=== PATIENT | female | born 1950 | race Caucasian/White ===

== ENCOUNTER 2023-04-26 12:10 | Inpatient (IN) | payer MEDICARE, SELFPAY ==
[2023-04-26] VITALS (8 sets, daily range): BP systolic 83–124; BP diastolic 45–72; PULSE 95–117; RESP 18–23; TEMP 36.9–37.1; O2SAT 91–98
--- NOTE | ~2023-04-26 | XR_ITS ---
EXAMINATION: XR FEMUR, RIGHT CLINICAL INFORMATION: Postop. Fracture. COMPARISON: Previous x-ray 04/26/2023 and intraoperative fluoroscopy images 04/28/2023 TECHNIQUE: AP and lateral views of the right femur were obtained. FINDINGS: There is a new laterally placed plate and multiple screws transfixing the comminuted periprosthetic fracture of the right distal femoral shaft. There is improved near-anatomic alignment. There is a right knee replacement that appears unremarkable. There are postoperative changes to the soft tissues. Atherosclerotic disease. XR/XR femur RT 2V IMPRESSION: ORIF of right distal femoral shaft periprosthetic fracture.
--- NOTE | ~2023-04-26 | XR_ITS ---
EXAMINATION: XR CHEST CLINICAL INFORMATION: Hip fracture. COMPARISON: None available. TECHNIQUE: AP view of the chest was obtained. FINDINGS: Nonspecific widening of the superior cardiomediastinal measuring up to 12.5 cm in diameter. A few focal airspace opacities are noted projecting over the right mid to lower lung. Clear left lung. No pleural effusion or pneumothorax. No evidence of displaced rib fractures. No acute osseous abnormalities. Nonspecific linear-like metallic body projecting over the left lung apex/soft tissues of the left lower neck. XR/XR chest 1V IMPRESSION: 1. Nonspecific widening of the superior cardiomediastinal silhouette most likely accentuated by patient's positioning. However, in the setting of trauma further evaluation with CT chest could be obtained as clinically deemed appropriate for evaluation of underlying injury. 2. Focal airspace opacities in the right lung. Recommend clinical correlation for an infectious/inflammatory process. 3. No pleural effusion or pneumothorax. 4. No evidence of displaced rib fractures. 5. Nonspecific metallic body projecting over the left upper lobe, possibly external to the patient. Recommend correlation with physical examination. This critical result, specifically the presence of widening of the superior cardiomediastinal silhouette, was discussed with Devin Benson at 04/26/2023 2:34 PM and it was ascertained that the content and urgency of the report was understood at the time of direct communication.
--- NOTE | ~2023-04-26 | XR_ITS ---
X-RAY RIGHT FEMUR AND RIGHT KNEE CLINICAL HISTORY: Fracture. COMPARISON: No relevant prior studies are available for comparison. TECHNIQUE: 2 views of the right femur and 2 views of the right knee. FINDINGS: Total right knee arthroplasty. Displaced, angulated and impacted comminuted periprosthetic fracture involving the distal femur. Surrounding soft tissue swelling. Moderate joint effusions. Scattered vascular calcifications. No discrete additional fracture in the right hip, although the examination is somewhat limited due to patient's positioning and body habitus. XR/XR femur RT 2V IMPRESSION: Periprosthetic distal femoral fracture.
--- NOTE | ~2023-04-26 | FL_ITS ---
EXAMINATION: XR FLUOROSCOPY WITH IMAGES CLINICAL INFORMATION: Periprosthetic distal femoral shaft fracture COMPARISON: Previous x-ray 04/26/2023 TECHNIQUE: Fluoroscopy Supervised By: Dr. Dank Corado. Fluoroscopy Time: 1.2 minutes. Cumulative Dose: 9.6 mGy. DAP: 0.17 Gycm2. Images: 8. FINDINGS: Fluoroscopy guidance provided plate and screw fixation of the periprostatic fracture of the right distal femoral shaft. Images demonstrate improved alignment. Right knee replacement partially visualized. FL/FL guidance in OR IMPRESSION: Fluoroscopy guidance for ORIF of right distal femoral shaft periprosthetic fracture.
--- NOTE | ~2023-04-26 | XR_ITS ---
EXAMINATION: XR CHEST CLINICAL INFORMATION: Hypoxia COMPARISON: Previous chest x-ray 04/26/2023 TECHNIQUE: Frontal view of the chest was obtained. FINDINGS: The cardiac and mediastinal contours are stable. The lungs are clear. No pleural effusion or pneumothorax. No acute bone abnormality. Degenerative changes of the spine and shoulders. XR/XR chest 1V IMPRESSION: No evidence for acute disease in the chest.
--- NOTE | ~2023-04-26 | XR_ITS ---
X-RAY RIGHT FEMUR AND RIGHT KNEE CLINICAL HISTORY: Fracture. COMPARISON: No relevant prior studies are available for comparison. TECHNIQUE: 2 views of the right femur and 2 views of the right knee. FINDINGS: Total right knee arthroplasty. Displaced, angulated and impacted comminuted periprosthetic fracture involving the distal femur. Surrounding soft tissue swelling. Moderate joint effusions. Scattered vascular calcifications. No discrete additional fracture in the right hip, although the examination is somewhat limited due to patient's positioning and body habitus. XR/XR knee RT 2V IMPRESSION: Periprosthetic distal femoral fracture.
--- NOTE | 2023-04-26 13:11 | PC.NURSE ---
pt a+o x3, came to ed via ambulance for evaluation of a fall. she reports that her knees buckled and she fell. denies dizziness or lightheadedness prior to fall. witnessed fall x2 different times since this morning, no head strike, no loc. c/o 10/10 r knee pain. no other complaints reported. at bedside.
--- NOTE | 2023-04-26 13:25 | ED.GENADULT ---
HPI - General Adult General Chief complaint: Fall Stated complaint: VERTIGO/FAINTING SPELLS Time Seen by Provider: 04/26/23 13:14 Source: patient Mode of arrival: ambulatory Limitations: no limitations History of Present Illness HPI narrative: knee gave out today and the patient fell back injuring her right leg. Unable to move her leg. No passing out no dizziness. Right knee replacement Onset (ago): minute(s) Severity: severe Related Data Allergies Allergy/AdvReac Type Severity Reaction Status Date / Time sulfite AdvReac Rash Verified 04/26/23 12:45 Review of Systems Review of Systems: Yes all other systems are reviewed and are negative Neurologic: Denies Sensory deficit (Neuro) [facility] Social History Social History Advance Directives: No Physical Exam ED Vital Signs: Vital Signs - 24 hr 04/26/23 12:22 04/26/23 12:50 04/26/23 15:57 Temperature 98.4 F 98.7 F Pulse Rate 109 H 105 H 103 H Respiratory Rate 20 20 Blood Pressure 99/56 L 101/57 L 83/47 L Pulse Oximetry 91 L Oxygen Delivery Method Room Air Room Air 04/26/23 18:00 04/26/23 18:50 04/26/23 19:39 Temperature Pulse Rate 98 107 H Respiratory Rate 23 H Blood Pressure 91/52 L 90/45 L 112/60 Pulse Oximetry 92 91 L Oxygen Delivery Method Room Air Room Air BMI result Body Mass Index 30.0 Const General: healthy appearing Nutritional Appearance: average body habitus Orientation/consciousness: oriented to person and patient oriented x3 Limitations: no limitations HENMT Head: Yes normal to inspection Ears: external ears normal General nose exam: Normal external nose present Mouth: Normal oral and palatal mucosa present and oropharynx normal Throat: Yes posterior oropharynx normal Eyes General: appearance normal, both eyes and all related structures Neck Neck: Yes normal visual inspection Chest Chest palpation & inspection: normal inspection of the chest Resp Auscultation: clear to auscultation bilaterally Cardio Jugular venous distension: no JVD Rate: regular rate Rhythm: regular rhythm Heart sounds: S1 normal heart sound present and S2 normal heart sound present GI Inspection: Yes normal to inspection Palpation (GI): Soft to palpation, nontender and No hepatosplenomegaly present Auscultation: normal bowel sounds General: Yes no CVA tenderness Back/Spine/Pelvis Back: no CVA tenderness Skin General skin exam: no rashes or lesions noted Neuro General: oriented to person and patient oriented x3 Cranial nerves: Yes CN's II-XII intact bilaterally Motor exam (neuro): 5/5 motor strength present throughout Sensory Exam: No Sensory deficit (Neuro) Extrem Other: right distal femur with swelling and pain Psych Appearance: grossly normal Course Reevaluation(s) Reevaluation #1: still waiting on lactic acid and Urine, no source of infection, patient is looking well despite low BP Time: 19:15 Reevaluation #2: urine is infected, lactic acid low, no evidence of sepsis will treat with ceftriaxone Time: 20:18 Reevaluation #3: I spent 40 minutes of critical care, with interventions, assessments, speaking to patient, consultants, and family. Time: 20:18 Medications Administered Discontinued Medications Generic Name Dose Route Start Last Admin Trade Name Freq PRN Reason Stop Dose Admin Sodium Chloride 1,000 mls @ 250 mls/hr 04/26/23 16:15 04/26/23 17:11 Ns IVCONT 04/26/23 20:14 250 mls/hr .Q4H LIANNE Administration Sodium Chloride 2,449.41 mls @ 2,449.41 mls/hr 04/26/23 16:15 04/26/23 17:54 Ns 30 ml/kg infuse over 1 hr (2449.41 ml) 04/26/23 17:14 Infused IV Infusion .Q1H STA Morphine Sulfate 5 mg 04/26/23 13:30 04/26/23 13:52 Morphine Sulfate 10 Mg/Ml Cartridge IM 04/26/23 13:31 5 mg ONCE ONE Administration Protocol Morphine Sulfate 5 mg 04/26/23 20:22 04/26/23 20:29 Morphine Sulfate 10 Mg/Ml Cartridge IVPUSH 04/26/23 20:23 5 mg ONCE ONE Administration Protocol Medical Decision Making Differential Diagnosis Differential Diagnoses: The differential diagnosis associated with the presentation includes (femur fracture, knee fracture, infection, weakness) Admission/Observation Consideration of admission/observation: Escalation of care including admission/observation considered (upon arrival patient was considered for admission) Consult Healthcare Provider Management of the patient was discussed with: Hospitalist and Residential Mental Health Worker (Dr. Corado) Lab Data MDM Lab Attestation statement: I reviewed the patient's lab results. (elevated wBC and renal insufficiency noted) 04/26/23 14:17 04/26/23 14:17 Labs: Lab Results 04/26/23 04/26/23 04/26/23 Range/Units 14:17 19:16 19:51 WBC 26.0 H (4.8-10.8) X10*3/uL RBC 5.08 (4.20-5.50) X10*6/uL Hgb 14.1 (12.0-16.0) g/dl Hct 41.1 (37.0-47.0) % MCV 80.9 (80.0-98.0) fL MCH 27.8 (27.0-33.0) pg MCHC 34.3 (31.0-35.0) g/dl RDW 13.9 (11.0-16.0) % Plt Count 148 L (160-400) X10*3/uL MPV 11.0 (9.4-12.3) fL Immature Gran % (Auto) Cancelled Neut % (Auto) Cancelled Lymph % (Auto) Cancelled [place] % (Auto) Cancelled Eos % (Auto) Cancelled Baso % (Auto) Cancelled Lymph # (Auto) Cancelled [place] # (Auto) Cancelled Eos # (Auto) Cancelled Baso # (Auto) Cancelled Abs Immat Gran (auto) Cancelled Absolute Neuts (auto) Cancelled Absolute Nucleated RBC 0.000 (0.0-0.012) X10*3/uL Nucleated RBC % (auto) 0.0 (0.0-0.2) /100WBC Neutrophils % (Manual) 70 (45-73) % Band Neutrophils % 24 H (3-5) % Lymphocytes % (Manual) 4 L (20-40) % Monocytes % (Manual) 1 L (2-11) % Metamyelocytes % 1 % Abs Neuts (Manual) 24.4 H (2.0-8.3) X10*3/uL Lymphocytes # (Manual) 1.0 L (1.2-4.9) X10*3/uL Monocytes # (Manual) 0.3 (0.1-1.2) X10*3/uL Metamyelocytes # 0.3 X10*3/uL Toxic Vacuolation PRESENT Dohle Bodies PRESENT Platelet Estimate NORMAL (NORMAL) Plt Morphology Comment NORMAL RBC Morphology NOTED Chris Cells 3+ (>5) /OIF Sodium 137 (135-145) mmol/L Potassium 3.2 L (3.3-5.1) mmol/L Chloride 102 (96-108) mmol/L Carbon Dioxide 18 L (22-29) mmol/L Anion Gap 20 (12-20) BUN 36 H (9-16) mg/dL Creatinine 2.26 H (0.5-1.4) mg/dL Estim Creat Clear Calc 23.0 Estimated GFR 21 Random Glucose 138 H (60-115) mg/dL Lactic Acid 1.9 (0.5-2.0) mmol/L Calcium 9.5 (8.4-10.2) mg/dL Urine Color Dark Yellow Urine Appearance Turbid Urine pH 5.0 (5.0-9.0) Ur Specific [place] 1.020 (1.005-1.025) Urine Protein 300 (3+) H (Neg-Trace) mg/dL Urine Glucose (UA) Negative (Negative) mg/dL Urine Ketones Trace (Negative) mg/dL Urine Blood Large (3+) H (Negative) Urine Nitrite Positive H (Negative) Ur Leukocyte Esterase Large (3+) H (Negative) Independent Interpretation I performed an independent interpretation of an: Plain X-Ray (femur: distal complex fracture CXR: no infiltrate) Independent Historian Clinical information obtained from an independent historian. History obtained from or confirmed by: Spouse Tests considered The following testing was considered but not selected: CT of femur considered Discharge Plan Discharge Clinical Impression: Femur fracture, right, Urinary tract infection, Acute renal insufficiency Patient Disposition: Admitted As Inpatient
[2023-04-26] MEDS: Morphine Sulfate 10 MG/ML CARTRIDGE 5 MG IM (13:52)
[2023-04-26 14:36] LABS: Anion Gap 20 (12-20); Blood Urea Nitrogen 36 mg/dL (9-16); Calcium 9.5 mg/dL (8.4-10.2); Carbon Dioxide 18 mmol/L (22-29); Chloride 102 mmol/L (96-108); Estimated Glomerular Filt Rate 21; Glucose Random 138 mg/dL (60-115); Potassium 3.2 mmol/L (3.3-5.1); Sodium 137 mmol/L (135-145)
[2023-04-26 14:40] LABS: Hematocrit 41.1 % (37.0-47.0); Hemoglobin 14.1 g/dl (12.0-16.0); Mean Corpuscular HGB Conc 34.3 g/dl (31.0-35.0); Mean Corpuscular Hemoglobin 27.8 pg (27.0-33.0); Mean Corpuscular Volume 80.9 fL (80.0-98.0); Platelet Count 148 X10*3/uL (160-400); Red Blood Count 5.08 X10*6/uL (4.20-5.50); Red Cell Distribution Width 13.9 % (11.0-16.0)
[2023-04-26 14:41] LABS: WBC ABN SCTR FOR CBC 1
[2023-04-26 15:25] LABS: Neutrophils Percent Manual 70 % (45-73)
[2023-04-26 15:33] LABS: Lymphocytes Percent Manual 4 % (20-40); Metamyelocytes Percent 1 %; Monocytes Percent Manual 1 % (2-11)
[2023-04-26 15:34] LABS: Band Neutrophils Percent 24 % (3-5); Burr Cells 3+ (>5) /OIF; RBC Morphology NOTED
[2023-04-26 15:35] LABS: Dohle Bodies PRESENT; Toxic Vacuolation PRESENT
[2023-04-26 15:36] LABS: Metamyelocytes Absolute 0.3 X10*3/uL; Monocytes Absolute Manual 0.3 X10*3/uL (0.1-1.2); Neutrophils Absolute Manual 24.4 X10*3/uL (2.0-8.3); Platelet Estimate NORMAL (NORMAL); Platelet Morphology Comment NORMAL
[2023-04-26] MEDS: 0.9 % Sodium Chloride 2,449.41 ML 2449.41 ML IV (16:56)
[2023-04-26] MEDS: 0.9 % Sodium Chloride 1,000 ML 250 ML IVCONT (17:11)
--- NOTE | 2023-04-26 19:00 | PC.NURSE ---
assumed care of pt
[2023-04-26 19:31] LABS: Appearance Urine Turbid; Color Urine Dark Yellow; Glucose Urine UA Negative (Negative); Leukocyte Esterase Urine Large (3+) (Negative); Nitrite Urine Positive (Negative); UMIC TRIGGER UACC YES; Urine Blood Large (3+) (Negative); Urine Ketones Trace mg/dL (Negative); Urine Protein 300 (3+) mg/dL (Neg-Trace)
--- NOTE | 2023-04-26 19:44 | PC.NURSE ---
Hira Persaud and Michelle attempted to draw second lactic acid, both attempts were unsuccessful. Lui Smiley is attempting to draw lactic at this time.
[2023-04-26 20:08] LABS: Lactic Acid 1.9 mmol/L (0.5-2.0)
[2023-04-26] MEDS: Morphine Sulfate 10 MG/ML CARTRIDGE 5 MG IVPUSH (20:29)
--- NOTE | 2023-04-26 20:34 | PC.NURSE ---
Purewick placed andmorphine 5mg administerted . Pt resting comfortably with family at bedside
--- NOTE | 2023-04-26 20:36 | P.HPHOSP_ITS ---
History of Present Illness Date of Service: 04/26/23 Chief Complaint: Fall This is a 72-year-old female with no known pertinent past medical history and not on prescription medications presents to the emergency department after a fall. Patient states she has been feeling unwell for the last 2 days. Had an episode of vomiting 1 day prior to presentation. Has associated generalized weakness and poor appetite. Also increased urinary frequency. Patient states after a shower on the day of presentation, she felt weak and felt like her knees gave out. She fell down on the right-side and heard a crack. No fever, chills, chest discomfort, palpitations, shortness of breath, abdominal pain, changes in urinary habits. No loss of consciousness prior to the fall. In the emergency department, patient was found to be septic and urine concerning for UTI. Imaging with distal femur fracture Review of Systems 2 Constitutional: Constitutional: Reports fatigue, Reports lethargy and Reports weakness Cardiovascular: Cardiovascular: Reports no additional cardiovascular complaints Respiratory: Respiratory: Reports no additional respiratory complaints Gastrointestinal: Gastrointestinal: Reports no additional gastrointestinal complaints Genitourinary: Genitourinary: Reports urinary urgency Musculoskeletal: Musculoskeletal: Reports arthralgias and Reports joint swelling Neurologic: Reports weakness Endocrine: Endocrine: Reports fatigue PMFSH Pertinent family history: No family history of early CAD Social History Patient Tobacco Use Status: Never used Tobacco Smoked in Last 30 Days: No Advance Directives: No Meds Allergies Allergy/AdvReac Type Severity Reaction Status Date / Time sulfite AdvReac Rash Verified 04/26/23 12:45 Home Medications Medication Instructions Recorded Confirmed Last Taken Type No Known Home Meds 04/26/23 04/26/23 Unknown History Physical Exam 2 Vital Signs and Narrative: Vital Signs: Last Vital Signs Temp 98.7 F 04/26/23 15:57 Pulse 107 H 04/26/23 19:39 Resp 23 H 04/26/23 19:39 BP 112/60 04/26/23 19:39 Pulse Ox 91 L 04/26/23 19:39 O2 Del Method Room Air 04/26/23 19:39 BMI result Body Mass Index 30.0 Elderly female lying in bed in no distress Neck supple, no JVD Regular rate and rhythm, S1-S2 heard Regular breath sounds bilaterally, no wheezing or crackles appreciated Abdomen soft nontender, no guarding, no rigidity Patient is awake, alert and oriented to self, place, time and person ; no focal motor deficit Right lower extremity limited movement due to pain Psych: Normal mood No pedal edema Results Labs 04/26/23 14:17 04/26/23 14:17 Labs: Laboratory Results - last 24 hr 04/26/23 04/26/23 04/26/23 14:17 19:16 19:51 MCV 80.9 MCH 27.8 MCHC 34.3 RDW 13.9 Plt Count 148 L MPV 11.0 Immature Gran % (Auto) Cancelled Neut % (Auto) Cancelled Lymph % (Auto) Cancelled [place] % (Auto) Cancelled Eos % (Auto) Cancelled Baso % (Auto) Cancelled Lymph # (Auto) Cancelled [place] # (Auto) Cancelled Eos # (Auto) Cancelled Baso # (Auto) Cancelled Abs Immat Gran (auto) Cancelled Absolute Neuts (auto) Cancelled Absolute Nucleated RBC 0.000 Nucleated RBC % (auto) 0.0 Neutrophils % (Manual) 70 Band Neutrophils % 24 H Lymphocytes % (Manual) 4 L Monocytes % (Manual) 1 L Metamyelocytes % 1 Abs Neuts (Manual) 24.4 H Lymphocytes # (Manual) 1.0 L Monocytes # (Manual) 0.3 Metamyelocytes # 0.3 Toxic Vacuolation PRESENT Dohle Bodies PRESENT Platelet Estimate NORMAL Plt Morphology Comment NORMAL RBC Morphology NOTED Chris Cells 3+ (>5) Anion Gap 20 Estim Creat Clear Calc 23.0 Estimated GFR 21 Random Glucose 138 H Lactic Acid 1.9 Calcium 9.5 Urine Color Dark Yellow Urine Appearance Turbid Urine pH 5.0 Ur Specific Jessie 1.020 Urine Protein 300 (3+) H Urine Glucose (UA) Negative Urine Ketones Trace Urine Blood Large (3+) H Urine Nitrite Positive H Ur Leukocyte Esterase Large (3+) H Imaging Radiologist's Impressions: Impressions Chest X-Ray 04/26/23 14:00 IMPRESSION: 1. Nonspecific widening of the superior cardiomediastinal silhouette most likely accentuated by patient's positioning. However, in the setting of trauma further evaluation with CT chest could be obtained as clinically deemed appropriate for evaluation of underlying injury. 2. Focal airspace opacities in the right lung. Recommend clinical correlation for an infectious/inflammatory process. 3. No pleural effusion or pneumothorax. 4. No evidence of displaced rib fractures. 5. Nonspecific metallic body projecting over the left upper lobe, possibly external to the patient. Recommend correlation with physical examination. This critical result, specifically the presence of widening of the superior cardiomediastinal silhouette, was discussed with Devin Benson at 04/26/2023 2:34 PM and it was ascertained that the content and urgency of the report was understood at the time of direct communication. Femur X-Ray 04/26/23 14:00 IMPRESSION: Periprosthetic distal femoral fracture. Knee X-Ray 04/26/23 14:00 IMPRESSION: Periprosthetic distal femoral fracture. Assessment and Plan (1) Acute renal insufficiency: Status: Acute (2) Urinary tract infection: Status: Acute (3) Femur fracture, right: Status: Acute Plan This is a 72-year-old female with no known pertinent past medical history and not on prescription medications presents to the emergency department after a fall. #. Sepsis due to acute UTI: Resuscitated with IV crystalloids. Initiating empiric IV Rocephin. Follow blood culture and urine culture. Lactic acid obtained #. Distal femoral fracture due to fall in the setting of UTI and generalized weakness. Orthopedic surgery consulted in the ER, appreciate assistance. Initiating IV opioids p.r.n. for pain #. Pre operative risk: RCRI 1, class II risk. Ordering BNP #. Elevated creatinine. No previous baseline. Likely acute kidney injury in the setting of sepsis. Resuscitated with IV crystalloids. Monitor creatinine and urine output #. Hypokalemia: Repleted DVT prophylaxis: Hold Lovenox until surgical evaluation Full code. Discussed with patient and family at bedside Admit as inpatient and will require two night minimum hospital stay for IV antibiotics. Specialist consult pending Time Spent With Patient Time: Total time managing care of this patient today ____ minutes. Quality Stroke Does the patient have a stroke diagnosis?: No VTE Prior VTE?: No VTE Risk Level:: Medical - moderate - high VTE Device Contraindication: Treatment Not Indicated VTE Drug Contraindication: Treatment Not Indicated
[2023-04-26 20:53] LABS: Bacteria Urine 4+ (None Seen); Hyaline Casts Urine >20 /LPF (0-2); RBC Urine >20 /HPF (0-2); Squamous Epithelial Cell Urine >20 /HPF (0-2); UACC Culture Trigger YES; WBC Urine >50 /HPF (0-5)
--- NOTE | 2023-04-26 21:03 | PC.NURSE ---
pt oxygen decreased to 88 on RA placed on 2L and increased to 93
--- NOTE | 2023-04-26 21:06 | PHA.MEDREC ---
Pharmacy Consult ? Medication Reconciliation Pharmacy has completed the medication reconciliation. Patient's at bedside, no medications or OTC supplements
--- NOTE | 2023-04-26 21:31 | PM.CNOR ---
History of Present Illness HPI Consult date: 04/26/23 Consult reason: fracture Chief complaint: Fall Narrative: R leg pain after a hyperflexion injury/fall. Imaging demonstrated a periprosthetic femur fracture. Admitted to medicine with urosepsis and femur fracture. She had been falling several times over past week thought to be 2/2 urosepsis. DUses a walker at baseline. Had a right TKA about 25-30 years ago. [facility] Social History Social History Household Members: Spouse Housing: House Do you presently have visiting nurse or other home services: No Patient Tobacco Use Status: Never used Tobacco Meds Allergies Allergy/AdvReac Type Severity Reaction Status Date / Time sulfite AdvReac Rash Verified 04/26/23 12:45 Active Medications: Current Medications Acetaminophen (Acetaminophen 325 Mg Tablet) 650 mg PO Q6H PRN PRN Reason: Pain, Mild (Pain Scale 1-3) Ceftriaxone Sodium 1 gm/ (Sodium Chloride) 50 mls @ 100 mls/hr IV Q24H [facility] Melatonin (Melatonin 3 Mg Tablet) 6 mg PO BEDTIME PRN PRN Reason: Insomnia Morphine Sulfate (Morphine Sulfate 4 Mg/Ml Cartridge) 4 mg IVPUSH Q4H PRN; Protocol PRN Reason: Pain, Severe (Pain Scale 7-10) Ondansetron HCl (Ondansetron Hcl 4 Mg/2 Ml Vial) 4 mg IVPUSH Q8H PRN PRN Reason: Nausea and Vomiting Sodium Chloride (0.9 % Sodium Chloride Flush 3 Ml Syringe) 3 ml IVFLUSH QSHIFT [facility] Home Medications Medication Instructions Recorded Confirmed Last Taken Type No Known Home Meds 04/26/23 04/26/23 Unknown History Physical Exam Vital Signs: Vital Signs: Last Vital Signs Temp 98.7 F 04/26/23 15:57 Pulse 117 H 04/26/23 21:01 Resp 18 04/26/23 21:01 BP 107/55 L 04/26/23 21:01 Pulse Ox 92 04/26/23 21:01 O2 Del Method Nasal Cannula 04/26/23 21:01 O2 Flow Rate 2 04/26/23 21:01 BMI result Body Mass Index 30.0 Extrem: Other: RLE with intact pedal pulses and skin intact over right distal femur external rotation deformity Results Labs 04/27/23 06:15 04/27/23 06:15 Labs: Abnormal lab results 04/26/23 04/26/23 Range/Units 14:17 19:16 WBC 26.0 H (4.8-10.8) X10*3/uL Plt Count 148 L (160-400) X10*3/uL Band Neutrophils % 24 H (3-5) % Lymphocytes % (Manual) 4 L (20-40) % Monocytes % (Manual) 1 L (2-11) % Abs Neuts (Manual) 24.4 H (2.0-8.3) X10*3/uL Lymphocytes # (Manual) 1.0 L (1.2-4.9) X10*3/uL Potassium 3.2 L (3.3-5.1) mmol/L Carbon Dioxide 18 L (22-29) mmol/L BUN 36 H (9-16) mg/dL Creatinine 2.26 H (0.5-1.4) mg/dL Random Glucose 138 H (60-115) mg/dL Urine Protein 300 (3+) H (Neg-Trace) mg/dL Urine Blood Large (3+) H (Negative) Urine Nitrite Positive H (Negative) Ur Leukocyte Esterase Large (3+) H (Negative) Urine RBC >20 H (0-2) /HPF Urine WBC >50 H (0-5) /HPF H & H 04/26/23 Range/Units 14:17 Hgb 14.1 (12.0-16.0) g/dl Hct 41.1 (37.0-47.0) % All other labs normal. Diagnostic results Knee x-ray: image reviewed (periprosthetic femur fracture with cemented TKA) Assessment and Plan (1) Femur fracture, right: Status: Acute Plan Periprosthetic femur fracture with urosepsis. ORIF recommended. She has been cleared for surgery. May require plate vs retrograde martin. I explained this to them and the differences in recovery associated with each procedure .I discussed this is detail with patient and family. I discussed the risks benefits and alternatives including but not limited to the risk of pain, infection, stiffness, need for further surgery as well as potential medical complications such as blood clots, pulmonary embolism and cardiac complications. She expressed understanding. Time Spent With Patient Time: Total time managing care of this patient today ____ minutes. Procedures Date of Service Date of Service: 04/27/23
[2023-04-26] MEDS: cefTRIAXone sodium 1 GM in 0.9 % Sodium Chloride 50 ML IV (21:34)
[2023-04-26 23:05] LABS: B Type Natriuretic Peptide 210 pg/mL (<100)
[2023-04-26] MEDS: Morphine Sulfate 4 MG/ML CARTRIDGE IVPUSH (23:51)
[2023-04-26] MEDS: 0.9 % Sodium Chloride Flush 3 ML SYRINGE IVFLUSH (23:52)
[2023-04-26] MEDS: Potassium Chloride Packet 20 MEQ PACKET 40 MEQ PO (23:55)
[2023-04-27] VITALS: BP 177/77; PULSE 100; RESP 18; TEMP 36.3; O2SAT 96; BMI 32.2
[2023-04-27 03:36] VITALS: BP 136/64; PULSE 100; RESP 18; TEMP 36.4; O2SAT 95
[2023-04-27] MEDS: Morphine Sulfate 4 MG/ML CARTRIDGE IVPUSH ×5 (03:55→22:44)
[2023-04-27 06:21] LABS: MANUAL DIFF FLAG NO
[2023-04-27 06:35] LABS: Anion Gap 16 (12-20); Blood Urea Nitrogen 36 mg/dL (9-16); Calcium 8.7 mg/dL (8.4-10.2); Carbon Dioxide 19 mmol/L (22-29); Chloride 112 mmol/L (96-108); Creatinine Clr Calc Pharmacy 43.2; Estimated Glomerular Filt Rate 42; Glucose Random 106 mg/dL (60-115); Potassium 3.5 mmol/L (3.3-5.1); Sodium 143 mmol/L (135-145)
[2023-04-27 06:39] LABS: Basophils Absolute Auto 0.1 X10*3/uL (0.0-0.2); Basophils Percent Auto 0.5 % (0-2); Eosinophils Percent Auto 0.1 % (0-4); Hematocrit 39.4 % (37.0-47.0); Hemoglobin 12.9 g/dl (12.0-16.0); Imm Gran Abs Auto 0.13 X10*3/uL (0.00-0.03); Lymphocytes Absolute Auto 0.7 X10*3/uL (1.2-4.9); Lymphocytes Percent Auto 4.8 % (20-40); Mean Corpuscular HGB Conc 32.7 g/dl (31.0-35.0); Mean Corpuscular Hemoglobin 27.3 pg (27.0-33.0); Mean Corpuscular Volume 83.3 fL (80.0-98.0); Mean Platelet Volume 11.2 fL (9.4-12.3); Monocytes Absolute Auto 0.9 X10*3/uL (0.1-1.2); Monocytes Percent Auto 6.5 % (2-11); Neutrophils Absolute Auto 11.9 x10*3/uL (2.0-8.3); Neutrophils Percent Auto 87.1 % (45-73); Platelet Count 122 X10*3/uL (160-400); Red Blood Count 4.73 X10*6/uL (4.20-5.50); Red Cell Distribution Width 14.1 % (11.0-16.0); White Blood Count 13.6 X10*3/uL (4.8-10.8)
[2023-04-27 07:48] VITALS: BP 132/76; PULSE 100; RESP 22; TEMP 36.6; O2SAT 94
[2023-04-27] MEDS: cefTRIAXone sodium 2 GM in 0.9 % Sodium Chloride 50 ML IV (08:09)
[2023-04-27] MEDS: 0.9 % Sodium Chloride Flush 3 ML SYRINGE IVFLUSH ×3 (08:09→19:29)
--- NOTE | 2023-04-27 13:07 | HO.PM.IMPN ---
Subjective Subjective Date of Service: 04/27/23 Interval History: tired Physical Exam Vital Signs: Vital Signs: Last Vital Signs Temp 97.9 F 04/27/23 07:48 Pulse 100 04/27/23 07:48 Resp 22 H 04/27/23 07:48 BP 132/76 04/27/23 07:48 Pulse Ox 94 04/27/23 07:48 O2 Del Method Nasal Cannula 04/27/23 07:48 O2 Flow Rate 2 04/27/23 07:48 BMI result Body Mass Index 32.2 Extrem: Other: RLE with intact pedal pulses and skin intact over right distal femur external rotation deformity Objective Data Active Medications Acetaminophen (Acetaminophen 325 Mg Tablet) 650 mg PO Q6H PRN PRN Reason: Pain, Mild (Pain Scale 1-3) Ceftriaxone Sodium 2 gm/ (Sodium Chloride) 50 mls @ 100 mls/hr IV Q24H [facility] Last Infusion: 04/27/23 09:32 Dose: Infused Documented By: BENIGNO Melatonin (Melatonin 3 Mg Tablet) 6 mg PO BEDTIME PRN PRN Reason: Insomnia Morphine Sulfate (Morphine Sulfate 4 Mg/Ml Cartridge) 4 mg IVPUSH Q4H PRN; Protocol PRN Reason: Pain, Severe (Pain Scale 7-10) Last Admin: 04/27/23 12:57 Dose: 4 mg Documented By: BENIGNO Ondansetron HCl (Ondansetron Hcl 4 Mg/2 Ml Vial) 4 mg IVPUSH Q8H PRN PRN Reason: Nausea and Vomiting Sodium Chloride (0.9 % Sodium Chloride Flush 3 Ml Syringe) 3 ml IVFLUSH [facility] Last Admin: 04/27/23 08:09 Dose: 3 ml Documented By: BENIGNO Labs 04/27/23 06:15 04/27/23 06:15 Labs: Laboratory Results - last 24 hr 04/26/23 04/26/23 04/26/23 14:17 19:16 19:51 MCV 80.9 MCH 27.8 MCHC 34.3 RDW 13.9 Plt Count 148 L MPV 11.0 Immature Gran % (Auto) Cancelled Neut % (Auto) Cancelled Lymph % (Auto) Cancelled [place] % (Auto) Cancelled Eos % (Auto) Cancelled Baso % (Auto) Cancelled Lymph # (Auto) Cancelled [place] # (Auto) Cancelled Eos # (Auto) Cancelled Baso # (Auto) Cancelled Abs Immat Gran (auto) Cancelled Absolute Neuts (auto) Cancelled Absolute Nucleated RBC 0.000 Nucleated RBC % (auto) 0.0 Neutrophils % (Manual) 70 Band Neutrophils % 24 H Lymphocytes % (Manual) 4 L Monocytes % (Manual) 1 L Metamyelocytes % 1 Abs Neuts (Manual) 24.4 H Lymphocytes # (Manual) 1.0 L Monocytes # (Manual) 0.3 Metamyelocytes # 0.3 Toxic Vacuolation PRESENT Dohle Bodies PRESENT Platelet Estimate NORMAL Plt Morphology Comment NORMAL RBC Morphology NOTED Chris Cells 3+ (>5) Anion Gap 20 Estim Creat Clear Calc 23.0 Estimated GFR 21 Random Glucose 138 H Lactic Acid 1.9 Calcium 9.5 B-Natriuretic Peptide Urine Color Dark Yellow Urine Appearance Turbid Urine pH 5.0 Ur Specific [place] 1.020 Urine Protein 300 (3+) H Urine Glucose (UA) Negative Urine Ketones Trace Urine Blood Large (3+) H Urine Nitrite Positive H Ur Leukocyte Esterase Large (3+) H Urine RBC >20 H Urine WBC >50 H Ur Squamous Epith Cells >20 Urine Bacteria 4+ Hyaline Casts >20 04/26/23 04/27/23 22:26 06:15 MCV 83.3 MCH 27.3 MCHC 32.7 RDW 14.1 Plt Count 122 L MPV 11.2 Immature Gran % (Auto) 1.0 H Neut % (Auto) 87.1 H Lymph % (Auto) 4.8 L [place] % (Auto) 6.5 Eos % (Auto) 0.1 Baso % (Auto) 0.5 Lymph # (Auto) 0.7 L [place] # (Auto) 0.9 Eos # (Auto) 0.0 Baso # (Auto) 0.1 Abs Immat Gran (auto) 0.13 H Absolute Neuts (auto) 11.9 H Absolute Nucleated RBC 0.000 Nucleated RBC % (auto) 0.0 Neutrophils % (Manual) Band Neutrophils % Lymphocytes % (Manual) Monocytes % (Manual) Metamyelocytes % Abs Neuts (Manual) Lymphocytes # (Manual) Monocytes # (Manual) Metamyelocytes # Toxic Vacuolation Dohle Bodies Platelet Estimate Plt Morphology Comment RBC Morphology [place] Cells Anion Gap 16 Estim Creat Clear Calc 43.2 Estimated GFR 42 Random Glucose 106 Lactic Acid Calcium 8.7 D B-Natriuretic Peptide 210 H Urine Color Urine Appearance Urine pH Ur Specific [place] Urine Protein Urine Glucose (UA) Urine Ketones Urine Blood Urine Nitrite Ur Leukocyte Esterase Urine RBC Urine WBC Ur Squamous Epith Cells Urine Bacteria Hyaline Casts Microbiology Microbiology Results: Microbiology 04/26/23 17:25 Blood Culture - Preliminary Blood - Venous Prelim: GNR Gram Stain only 04/26/23 16:56 Blood Culture - Preliminary Blood - Venous Prelim: GNR Gram Stain only Assessment and Plan (1) Acute renal insufficiency: Status: Acute Plan 72F presented with mechanical fall found to have right distal periprosthetic femur fracture, uti, sepsis, anil, hypoxia, pna Sepsis and acute hypoxic respiratory failure secondary to acute UTI and pneumonia complicated by Gram-negative martin bacteremia Ceftriaxone, follow-up cultures, wean O2 as tolerated Right distal femoral periprosthetic fracture due to mechanical fall due to above Plan for surgery tomorrow ANIL Resolved Acute hypokalemia Repleted Full code Reason continue hospitalization-plan for surgery Time Spent With Patient Time: Total time managing care of this patient today ____ minutes. Quality Stroke Does the patient have a stroke diagnosis?: No VTE Prior VTE?: No VTE Risk Level:: Medical - moderate - high VTE Device Contraindication: Treatment Not Indicated VTE Drug Contraindication: Treatment Not Indicated
[2023-04-27 15:46] VITALS: BP 123/62; PULSE 107; RESP 18; TEMP 36.3; O2SAT 93
--- NOTE | 2023-04-27 16:23 | MHC.CM.PN ---
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 IMM DELIVERED DCP TBD PENDING PT EVAL. ACUTE VS STR PTS REQUESTING REFERRAL TO [facility] REFERRAL MADE
--- NOTE | 2023-04-27 18:23 | PC.NURSE ---
Patient was noted to have her IV pulled out from the right antecubital. On assessment, the arm was warm and swollen. There was no swelling in the morning when the IV was still intact. Charge nurse and the MD were notified.
[2023-04-27 20:00] VITALS: BP 122/56; PULSE 100; RESP 20; TEMP 36; O2SAT 94
[2023-04-28] VITALS (16 sets, daily range): BP systolic 130–165; BP diastolic 66–84; PULSE 92–99; RESP 10–19; TEMP 36.1–38.3; O2SAT 90–96
[2023-04-28] MEDS: Morphine Sulfate 4 MG/ML CARTRIDGE IVPUSH (05:24)
[2023-04-28 06:20] LABS: Anion Gap 15 (12-20); Blood Urea Nitrogen 29 mg/dL (9-16); Calcium 8.7 mg/dL (8.4-10.2); Carbon Dioxide 23 mmol/L (22-29); Chloride 111 mmol/L (96-108); Creatinine Clr Calc Pharmacy 67.5; Estimated Glomerular Filt Rate > 60; Glucose Fasting 116 mg/dL (60-99); Potassium 3.5 mmol/L (3.3-5.1); Sodium 145 mmol/L (135-145)
[2023-04-28 06:50] LABS: Hemoglobin 11.6 g/dl (12.0-16.0); Mean Corpuscular HGB Conc 32.2 g/dl (31.0-35.0); Mean Corpuscular Hemoglobin 27.6 pg (27.0-33.0); Mean Corpuscular Volume 85.7 fL (80.0-98.0); Mean Platelet Volume 11.2 fL (9.4-12.3); Platelet Count 115 X10*3/uL (160-400); Red Cell Distribution Width 14.2 % (11.0-16.0); White Blood Count 6.7 X10*3/uL (4.8-10.8)
[2023-04-28] MEDS: cefTRIAXone sodium 2 GM in 0.9 % Sodium Chloride 50 ML IV (07:33)
[2023-04-28] MEDS: 0.9 % Sodium Chloride Flush 3 ML SYRINGE IVFLUSH ×3 (07:34→22:12)
--- NOTE | 2023-04-28 07:48 | P.CONAN_ITS ---
[facility] Active Problems Active Problems: All Active Problems (Updated 04/26/23 @ 20:54 by Sascha Lorenzana MD) Acute renal insufficiency (Acute) Urinary tract infection (Acute) Femur fracture, right (Acute) Past Medical History Patient : No Family History Family history of problems with anesthesia: No Surgical History History of Problems with Anesthesia: No Social History Social History Household Members: Spouse Housing: House Do you presently have visiting nurse or other home services: No Patient Tobacco Use Status: Never used Tobacco service: No Meds Allergies Allergy/AdvReac Type Severity Reaction Status Date / Time sulfite AdvReac Rash Verified 04/26/23 12:45 Active Medications: Current Medications Acetaminophen (Acetaminophen 325 Mg Tablet) 650 mg PO Q6H PRN PRN Reason: Pain, Mild (Pain Scale 1-3) Ceftriaxone Sodium 2 gm/ (Sodium Chloride) 50 mls @ 100 mls/hr IV Q24H [facility] Last Admin: 04/28/23 07:33 Dose: 100 mls/hr Melatonin (Melatonin 3 Mg Tablet) 6 mg PO BEDTIME PRN PRN Reason: Insomnia Morphine Sulfate (Morphine Sulfate 4 Mg/Ml Cartridge) 4 mg IVPUSH Q4H PRN; Protocol PRN Reason: Pain, Severe (Pain Scale 7-10) Last Admin: 04/28/23 05:24 Dose: 4 mg Ondansetron HCl (Ondansetron Hcl 4 Mg/2 Ml Vial) 4 mg IVPUSH Q8H PRN PRN Reason: Nausea and Vomiting Sodium Chloride (0.9 % Sodium Chloride Flush 3 Ml Syringe) 3 ml IVFLUSH QSHIFT [facility] Last Admin: 04/28/23 07:34 Dose: 3 ml Home Medications Medication Instructions Recorded Confirmed Last Taken Type No Known Home Meds 04/26/23 04/26/23 Unknown History Exam Exam Date and Time: April 28, 2023 0748 Height,Weight and Vital Signs: Height 5 ft 5 in Weight 87.8 kg Last Vital Signs Temp 98.2 F 04/28/23 03:50 Pulse 96 04/28/23 03:50 Resp 19 04/28/23 03:50 BP 142/73 H 04/28/23 03:50 Pulse Ox 94 04/28/23 03:50 O2 Del Method Nasal Cannula 04/28/23 03:50 O2 Flow Rate 2 04/28/23 03:50 Pertinent Lab Results Pertinent Lab Results: Laboratory Tests 04/26/23 04/26/23 04/26/23 14:17 19:16 19:51 WBC 26.0 H RBC 5.08 Hgb 14.1 Hct 41.1 MCV 80.9 MCH 27.8 MCHC 34.3 RDW 13.9 Plt Count 148 L MPV 11.0 Immature Gran % (Auto) Cancelled Neut % (Auto) Cancelled Lymph % (Auto) Cancelled [place] % (Auto) Cancelled Eos % (Auto) Cancelled Baso % (Auto) Cancelled Lymph # (Auto) Cancelled [place] # (Auto) Cancelled Eos # (Auto) Cancelled Baso # (Auto) Cancelled Abs Immat Gran (auto) Cancelled Absolute Neuts (auto) Cancelled Absolute Nucleated RBC 0.000 Nucleated RBC % (auto) 0.0 Neutrophils % (Manual) 70 Band Neutrophils % 24 H Lymphocytes % (Manual) 4 L Monocytes % (Manual) 1 L Metamyelocytes % 1 Abs Neuts (Manual) 24.4 H Lymphocytes # (Manual) 1.0 L Monocytes # (Manual) 0.3 Metamyelocytes # 0.3 Toxic Vacuolation PRESENT Dohle Bodies PRESENT Platelet Estimate NORMAL Plt Morphology Comment NORMAL RBC Morphology NOTED Chris Cells 3+ (>5) Sodium 137 Potassium 3.2 L Chloride 102 Carbon Dioxide 18 L Anion Gap 20 BUN 36 H Creatinine 2.26 H Estim Creat Clear Calc 23.0 Estimated GFR 21 Random Glucose 138 H Fasting Glucose Lactic Acid 1.9 Calcium 9.5 B-Natriuretic Peptide Urine Color Dark Yellow Urine Appearance Turbid Urine pH 5.0 Ur Specific [place] 1.020 Urine Protein 300 (3+) H Urine Glucose (UA) Negative Urine Ketones Trace Urine Blood Large (3+) H Urine Nitrite Positive H Ur Leukocyte Esterase Large (3+) H Urine RBC >20 H Urine WBC >50 H Ur Squamous Epith Cells >20 Urine Bacteria 4+ Hyaline Casts >20 04/26/23 04/27/23 04/28/23 22:26 06:15 05:55 WBC 13.6 H 6.7 RBC 4.73 4.20 Hgb 12.9 11.6 L Hct 39.4 36.0 L MCV 83.3 85.7 MCH 27.3 27.6 MCHC 32.7 32.2 RDW 14.1 14.2 Plt Count 122 L 115 L MPV 11.2 11.2 Immature Gran % (Auto) 1.0 H Neut % (Auto) 87.1 H Lymph % (Auto) 4.8 L [place] % (Auto) 6.5 Eos % (Auto) 0.1 Baso % (Auto) 0.5 Lymph # (Auto) 0.7 L [place] # (Auto) 0.9 Eos # (Auto) 0.0 Baso # (Auto) 0.1 Abs Immat Gran (auto) 0.13 H Absolute Neuts (auto) 11.9 H Absolute Nucleated RBC 0.000 0.000 Nucleated RBC % (auto) 0.0 0.0 Neutrophils % (Manual) Band Neutrophils % Lymphocytes % (Manual) Monocytes % (Manual) Metamyelocytes % Abs Neuts (Manual) Lymphocytes # (Manual) Monocytes # (Manual) Metamyelocytes # Toxic Vacuolation Dohle Bodies Platelet Estimate Plt Morphology Comment RBC Morphology Chris Cells Sodium 143 145 Potassium 3.5 3.5 Chloride 112 H 111 H Carbon Dioxide 19 L 23 Anion Gap 16 15 BUN 36 H 29 H Creatinine 1.25 0.80 Estim Creat Clear Calc 43.2 67.5 Estimated GFR 42 > 60 Random Glucose 106 Fasting Glucose 116 H Lactic Acid Calcium 8.7 D 8.7 B-Natriuretic Peptide 210 H Urine Color Urine Appearance Urine pH Ur Specific [place] Urine Protein Urine Glucose (UA) Urine Ketones Urine Blood Urine Nitrite Ur Leukocyte Esterase Urine RBC Urine WBC Ur Squamous Epith Cells Urine Bacteria Hyaline Casts Assessment and Plan Final Anesthetic Review Family History of Problems with Anesthesia: No History of Problems with Anesthesia: No
--- NOTE | 2023-04-28 09:24 | P.CONAN_ITS ---
[facility] Active Problems Active Problems: All Active Problems (Updated 04/26/23 @ 20:54 by Sascha Lorenzana MD) Acute renal insufficiency (Acute) Urinary tract infection (Acute) Femur fracture, right (Acute) Family History Family history of problems with anesthesia: No Surgical History History of Problems with Anesthesia: No Social History Social History Household Members: Spouse Housing: House Do you presently have visiting nurse or other home services: No Patient Tobacco Use Status: Never used Tobacco service: No Meds Allergies Allergy/AdvReac Type Severity Reaction Status Date / Time sulfite AdvReac Rash Verified 04/26/23 12:45 Active Medications: Current Medications Acetaminophen (Acetaminophen 325 Mg Tablet) 650 mg PO Q6H PRN PRN Reason: Pain, Mild (Pain Scale 1-3) Ceftriaxone Sodium 2 gm/ (Sodium Chloride) 50 mls @ 100 mls/hr IV Q24H [facility] Last Infusion: 04/28/23 08:18 Dose: Infused Melatonin (Melatonin 3 Mg Tablet) 6 mg PO BEDTIME PRN PRN Reason: Insomnia Morphine Sulfate (Morphine Sulfate 4 Mg/Ml Cartridge) 4 mg IVPUSH Q4H PRN; Protocol PRN Reason: Pain, Severe (Pain Scale 7-10) Last Admin: 04/28/23 05:24 Dose: 4 mg Ondansetron HCl (Ondansetron Hcl 4 Mg/2 Ml Vial) 4 mg IVPUSH Q8H PRN PRN Reason: Nausea and Vomiting Sodium Chloride (0.9 % Sodium Chloride Flush 3 Ml Syringe) [facility] Last Admin: 04/28/23 07:34 Dose: 3 ml Home Medications Medication Instructions Recorded Confirmed Last Taken Type No Known Home Meds 04/26/23 04/26/23 Unknown History Exam Exam Date and Time: April 28, 2023923 Height,Weight and Vital Signs: Height 5 ft 5 in Weight 87.8 kg Last Vital Signs Temp 97.2 F 04/28/23 07:58 Pulse 94 04/28/23 07:58 Resp 18 04/28/23 07:58 BP 165/79 H 04/28/23 07:58 Pulse Ox 93 04/28/23 07:58 O2 Del Method Nasal Cannula 04/28/23 07:58 O2 Flow Rate 3 04/28/23 07:58 Pertinent Lab Results Pertinent Lab Results: Laboratory Tests 04/26/23 04/26/23 04/26/23 14:17 19:16 19:51 WBC 26.0 H RBC 5.08 Hgb 14.1 Hct 41.1 MCV 80.9 MCH 27.8 MCHC 34.3 RDW 13.9 Plt Count 148 L MPV 11.0 Immature Gran % (Auto) Cancelled Neut % (Auto) Cancelled Lymph % (Auto) Cancelled [place] % (Auto) Cancelled Eos % (Auto) Cancelled Baso % (Auto) Cancelled Lymph # (Auto) Cancelled [place] # (Auto) Cancelled Eos # (Auto) Cancelled Baso # (Auto) Cancelled Abs Immat Gran (auto) Cancelled Absolute Neuts (auto) Cancelled Absolute Nucleated RBC 0.000 Nucleated RBC % (auto) 0.0 Neutrophils % (Manual) 70 Band Neutrophils % 24 H Lymphocytes % (Manual) 4 L Monocytes % (Manual) 1 L Metamyelocytes % 1 Abs Neuts (Manual) 24.4 H Lymphocytes # (Manual) 1.0 L Monocytes # (Manual) 0.3 Metamyelocytes # 0.3 Toxic Vacuolation PRESENT Dohle Bodies PRESENT Platelet Estimate NORMAL Plt Morphology Comment NORMAL RBC Morphology NOTED Chris Cells 3+ (>5) Sodium 137 Potassium 3.2 L Chloride 102 Carbon Dioxide 18 L Anion Gap 20 BUN 36 H Creatinine 2.26 H Estim Creat Clear Calc 23.0 Estimated GFR 21 Random Glucose 138 H Fasting Glucose Lactic Acid 1.9 Calcium 9.5 B-Natriuretic Peptide Urine Color Dark Yellow Urine Appearance Turbid Urine pH 5.0 Ur Specific [place] 1.020 Urine Protein 300 (3+) H Urine Glucose (UA) Negative Urine Ketones Trace Urine Blood Large (3+) H Urine Nitrite Positive H Ur Leukocyte Esterase Large (3+) H Urine RBC >20 H Urine WBC >50 H Ur Squamous Epith Cells >20 Urine Bacteria 4+ Hyaline Casts >20 04/26/23 04/27/23 04/28/23 22:26 06:15 05:55 WBC 13.6 H 6.7 RBC 4.73 4.20 Hgb 12.9 11.6 L Hct 39.4 36.0 L MCV 83.3 85.7 MCH 27.3 27.6 MCHC 32.7 32.2 RDW 14.1 14.2 Plt Count 122 L 115 L MPV 11.2 11.2 Immature Gran % (Auto) 1.0 H Neut % (Auto) 87.1 H Lymph % (Auto) 4.8 L [place] % (Auto) 6.5 Eos % (Auto) 0.1 Baso % (Auto) 0.5 Lymph # (Auto) 0.7 L [place] # (Auto) 0.9 Eos # (Auto) 0.0 Baso # (Auto) 0.1 Abs Immat Gran (auto) 0.13 H Absolute Neuts (auto) 11.9 H Absolute Nucleated RBC 0.000 0.000 Nucleated RBC % (auto) 0.0 0.0 Neutrophils % (Manual) Band Neutrophils % Lymphocytes % (Manual) Monocytes % (Manual) Metamyelocytes % Abs Neuts (Manual) Lymphocytes # (Manual) Monocytes # (Manual) Metamyelocytes # Toxic Vacuolation Dohle Bodies Platelet Estimate Plt Morphology Comment RBC Morphology [place] Cells Sodium 143 145 Potassium 3.5 3.5 Chloride 112 H 111 H Carbon Dioxide 19 L 23 Anion Gap 16 15 BUN 36 H 29 H Creatinine 1.25 0.80 Estim Creat Clear Calc 43.2 67.5 Estimated GFR 42 > 60 Random Glucose 106 Fasting Glucose 116 H Lactic Acid Calcium 8.7 D 8.7 B-Natriuretic Peptide 210 H Urine Color Urine Appearance Urine pH Ur Specific [place] Urine Protein Urine Glucose (UA) Urine Ketones Urine Blood Urine Nitrite Ur Leukocyte Esterase Urine RBC Urine WBC Ur Squamous Epith Cells Urine Bacteria Hyaline Casts Airway Mallampati Class: II TM Dist: >3cm Neck ROM: Full Heart: RRR Lungs: CTA Assessment and Plan Final Anesthetic Review Family History of Problems with Anesthesia: No History of Problems with Anesthesia: No NPO: Yes ASA Class: III and Emergency Final Preanesthetic Review: Meds/Allgs Chart Reviewed, Consent Obtained/Reviewed and Anes Risks/Benef Reviewed Patient Risk: Intermediate Procedure Risk: Intermediate Anesthetic Plan Anesthetic Plan: GA Disposition: Standard PACU
--- NOTE | 2023-04-28 11:09 | P.BOP_ITS ---
Brief Operative Note Date of Service: 04/28/23 Pre-op diagnosis: Right periporosthetic femur fracture Post-op diagnosis: same Procedure: ORIF right periprosthetic femur fracture Implants: Styker lateral femoral locking plate Surgeon: Dank Corado MD Anesthesia: GETA and local Was an Wildlife Conservation Professor used for this Procedure?: No Estimated blood loss (mL): 250 IV fluids (mL): 1,200 Pathology: none sent Condition: stable Disposition: PACU
--- NOTE | 2023-04-28 11:15 | P.PNIM_ITS ---
Subjective Subjective Date of Service: 04/28/23 Interval History: no new complaints Physical Exam 2 Vital Signs: Vital Signs: Last Vital Signs Temp 97.2 F 04/28/23 07:58 Pulse 94 04/28/23 07:58 Resp 18 04/28/23 07:58 BP 165/79 H 04/28/23 07:58 Pulse Ox 93 04/28/23 07:58 O2 Del Method Nasal Cannula 04/28/23 07:58 O2 Flow Rate 3 04/28/23 07:58 BMI result Body Mass Index 32.2 Extrem: Other: RLE with intact pedal pulses and skin intact over right distal femur external rotation deformity Objective Data Active Medications Acetaminophen (Acetaminophen 325 Mg Tablet) 650 mg PO Q6H PRN PRN Reason: Pain, Mild (Pain Scale 1-3) Fentanyl (Fentanyl Citrate/Pf 100 Mcg/2 Ml Vial) 25 mcg IVPUSH Q5M PRN; Protocol PRN Reason: Pain, Moderate(Pain Scale 4-6) Ceftriaxone Sodium 2 gm/ (Sodium Chloride) 50 mls @ 100 mls/hr IV Q24H [facility] Last Infusion: 04/28/23 08:18 Dose: Infused Documented By: BENIGNO Melatonin (Melatonin 3 Mg Tablet) 6 mg PO BEDTIME PRN PRN Reason: Insomnia Morphine Sulfate (Morphine Sulfate 4 Mg/Ml Cartridge) 4 mg IVPUSH Q4H PRN; Protocol PRN Reason: Pain, Severe (Pain Scale 7-10) Last Admin: 04/28/23 05:24 Dose: 4 mg Documented By: KAYLEE Ondansetron HCl (Ondansetron Hcl 4 Mg/2 Ml Vial) 4 mg IVPUSH Q8H PRN PRN Reason: Nausea and Vomiting Ondansetron HCl (Ondansetron Hcl 4 Mg/2 Ml Vial) 4 mg IVPUSH ONCE PRN PRN Reason: Nausea and Vomiting Sodium Chloride (0.9 % Sodium Chloride Flush 3 Ml Syringe) 3 ml IVFLUSH [facility] Last Admin: 04/28/23 07:34 Dose: 3 ml Documented By: BENIGNO Labs 04/28/23 05:55 04/28/23 05:55 Labs: Laboratory Results - last 24 hr 04/28/23 05:55 MCV 85.7 MCH 27.6 MCHC 32.2 RDW 14.2 Plt Count 115 L MPV 11.2 Absolute Nucleated RBC 0.000 Nucleated RBC % (auto) 0.0 Anion Gap 15 Estim Creat Clear Calc 67.5 Estimated GFR > 60 Fasting Glucose 116 H Calcium 8.7 Microbiology Microbiology Results: Microbiology 04/26/23 Unknown Urine Culture - Preliminary Urine clean catch - Urine ingram top Culture in progress. 04/26/23 17:25 Blood Culture - Preliminary Blood - Venous Prelim: GNR Gram Stain only 04/26/23 16:56 Blood Culture - Preliminary Blood - Venous Prelim: GNR Gram Stain only Assessment and Plan (1) Acute renal insufficiency: Status: Acute Plan 72F presented with mechanical fall found to have right distal periprosthetic femur fracture, uti, sepsis, anil, hypoxia, pna Sepsis and acute hypoxic respiratory failure secondary to acute UTI and pneumonia complicated by Gram-negative martin bacteremia Ceftriaxone, follow-up cultures, wean O2 as tolerated Right distal femoral periprosthetic fracture due to mechanical fall due to above surgery today ANIL Resolved Acute hypokalemia Repleted Full code Reason continue hospitalization-monitor postop Time Spent With Patient Time: Total time managing care of this patient today ____ minutes. Quality Stroke Does the patient have a stroke diagnosis?: No VTE Prior VTE?: No VTE Risk Level:: Medical - moderate - high VTE Device Contraindication: Treatment Not Indicated VTE Drug Contraindication: Treatment Not Indicated
[2023-04-28] MEDS: Acetaminophen 1,000 MG/100 ML PIGGYBACK 400 MG IV (11:30)
[2023-04-28] MEDS: ceFAZolin Sodium/Dextrose,Iso 2 GM/50 ML PIGGYBACK IV (16:45)
[2023-04-29] VITALS (8 sets, daily range): BP systolic 141–189; BP diastolic 64–95; PULSE 95–102; RESP 18–22; TEMP 36.3–36.8; O2SAT 93–96
[2023-04-29] MEDS: cefTRIAXone sodium 2 GM in 0.9 % Sodium Chloride 50 ML IV (06:35)
[2023-04-29] MEDS: 0.9 % Sodium Chloride Flush 3 ML SYRINGE IVFLUSH ×3 (07:13→21:44)
[2023-04-29] MEDS: Morphine Sulfate 4 MG/ML CARTRIDGE IVPUSH (07:48)
--- NOTE | 2023-04-29 08:46 | P.PNOP_ITS ---
Subjective Subjective Date of Service: 04/29/23 Interval history: POD 1 s/p ORIF right femur periprosthetic fx no overnight events resting in bed denies sob, cp, palpitations Physical Exam Vital Signs: Vital Signs: Last Vital Signs Temp 98.2 F 04/29/23 07:29 Pulse 98 04/29/23 07:29 Resp 19 04/29/23 07:48 BP 189/95 H 04/29/23 07:29 Pulse Ox 93 04/29/23 07:29 O2 Del Method Nasal Cannula 04/29/23 07:29 O2 Flow Rate 2 04/29/23 07:29 Oxygen Flow Rate 2 04/28/23 09:25 BMI result Body Mass Index 32.2 Const: General: cooperative, healthy appearing and no acute distress Resp: Effort & Inspection: normal respiratory effort and able to speak in complete sentences Cardio: Rate: regular rate Peripheral pulses: Peripheral pulses 2+ throughout GI: Palpation (GI): Soft to palpation Skin: General skin exam: no rashes or lesions noted Extrem: Other: bandage c/d/i. No erythema or effusion. Calf supple nontender. Neurovascularly intact. Procedures Date of Service Date of Service: 04/29/23 Progress Note: A&P Assessment and plan (1) Femur fracture, right: Status: Acute Assessment and Plan: * Continue pain mgmnt * Begin lovenox for dvt ppx * begin PT / OT for RT ORIF femur-NWB * Dispo planning-Pending PT eval, pain mgmnt Time Spent With Patient Time: Total time managing care of this patient today ____ minutes. Quality Stroke Does the patient have a stroke diagnosis?: No VTE Prior VTE?: No VTE Risk Level:: Medical - moderate - high VTE Device Contraindication: Treatment Not Indicated VTE Drug Contraindication: Treatment Not Indicated
--- NOTE | 2023-04-29 09:20 | HO.PM.IMPN ---
Subjective Subjective Date of Service: 04/29/23 Interval History: cough Physical Exam Vital Signs: Vital Signs: Last Vital Signs Temp 98.2 F 04/29/23 07:29 Pulse 98 04/29/23 07:29 Resp 19 04/29/23 07:48 BP 189/95 H 04/29/23 07:29 Pulse Ox 93 04/29/23 07:29 O2 Del Method Nasal Cannula 04/29/23 07:29 O2 Flow Rate 2 04/29/23 07:29 Oxygen Flow Rate 2 04/28/23 09:25 BMI result Body Mass Index 32.2 Const: General: cooperative, healthy appearing and no acute distress Resp: Effort & Inspection: normal respiratory effort and able to speak in complete sentences Cardio: Rate: regular rate Peripheral pulses: Peripheral pulses 2+ throughout GI: Palpation (GI): Soft to palpation Skin: General skin exam: no rashes or lesions noted Extrem: Other: bandage c/d/i. No erythema or effusion. Calf supple nontender. Neurovascularly intact. Objective Data Active Medications Acetaminophen (Acetaminophen 325 Mg Tablet) 650 mg PO Q6H PRN PRN Reason: Pain, Mild (Pain Scale 1-3) Enoxaparin Sodium (Enoxaparin Sodium 40 Mg/0.4 Ml Syringe) 40 mg SUBCUT Q24H [facility] Ceftriaxone Sodium 2 gm/ (Sodium Chloride) 50 mls @ 100 mls/hr IV Q24H [facility] Last Infusion: 04/29/23 07:12 Dose: Infused Documented By: ADARSHEMA Melatonin (Melatonin 3 Mg Tablet) 6 mg PO BEDTIME PRN PRN Reason: Insomnia Morphine Sulfate (Morphine Sulfate 4 Mg/Ml Cartridge) 4 mg IVPUSH Q4H PRN; Protocol PRN Reason: Pain, Severe (Pain Scale 7-10) Last Admin: 04/29/23 07:48 Dose: 4 mg Documented By: COTEMA Morphine Sulfate (Morphine Sulfate Oral Saira 10 Mg/5 Ml Solution) 5 mg PO Q4H PRN PRN Reason: moderate pain Ondansetron HCl (Ondansetron Hcl 4 Mg/2 Ml Vial) 4 mg IVPUSH Q8H PRN PRN Reason: Nausea and Vomiting Sodium Chloride (0.9 % Sodium Chloride Flush 3 Ml Syringe) 3 ml IVFLUSH QSHIFT [facility] Last Admin: 04/29/23 07:13 Dose: 3 ml Documented By: ROBI Labs 04/28/23 05:55 04/28/23 05:55 Microbiology Microbiology Results: Microbiology 04/26/23 17:25 Blood Culture - Final Blood - Venous Escherichia coli 04/26/23 16:56 Blood Culture - Final Blood - Venous Escherichia coli 04/26/23 Unknown Urine Culture - Final Urine clean catch - Urine ingram top Assessment and Plan (1) Acute renal insufficiency: Status: Acute Plan 72F presented with mechanical fall found to have right distal periprosthetic femur fracture, uti, sepsis, anil, hypoxia, pna Sepsis and acute hypoxic respiratory failure secondary to acute UTI and pneumonia complicated by ecoli bacteremia Ceftriaxone, wean O2 as tolerated follow up cxr Right distal femoral periprosthetic fracture due to mechanical fall due to above surgery today ANIL Resolved Acute hypokalemia Repleted Full code Reason continue hospitalization-monitor postop Time Spent With Patient Time: Total time managing care of this patient today ____ minutes. Quality Stroke Does the patient have a stroke diagnosis?: No VTE Prior VTE?: No VTE Risk Level:: Medical - moderate - high VTE Device Contraindication: Treatment Not Indicated VTE Drug Contraindication: Treatment Not Indicated
[2023-04-29] MEDS: Morphine Sulfate Oral Sol 10 MG/5 ML SOLUTION 5 MG PO ×3 (11:17→21:48)
[2023-04-29] MEDS: Enoxaparin Sodium 40 MG/0.4 ML SYRINGE SUBCUT (11:21)
--- NOTE | 2023-04-29 11:55 | MHC.CM.PN ---
Met with family at their request to discuss DC plan. PT eval recommends STR, prior referal in for acute rehab. Family gave choices of rehabs, [place] / [place] area, not [facility] rehab. Referrals sent, Pt not medically cleared for DC. CM to follow.
--- NOTE | 2023-04-29 15:07 | HO.POSTANES ---
Post Anesthesia Evaluation Post Anesthesia Evaluation Date of Service: 04/29/23 Vital Signs: Vital Signs Temp Pulse Resp BP Pulse Ox O2 Del Method O2 Flow Rate 04/29/23 12:17 95 20 96 Nasal Cannula 1 04/29/23 10:58 97.5 F 102 H 20 141/68 H 95 Nasal Cannula 2 04/29/23 09:25 95 Nasal Cannula 04/29/23 07:48 19 04/29/23 07:29 98.2 F 98 20 189/95 H 93 Nasal Cannula 2 04/29/23 04:00 97.3 F 95 18 168/64 H 95 Nasal Cannula 2 Anesthesia: General Mental Status: Awake Pain Control: Satisfactory Nausea/Vomiting: None Hydration: Adequate Anesthesia-Related Issues: No Anes. Related Issues
[2023-04-30] VITALS: BP 119/61; PULSE 86; RESP 18; TEMP 36.1; O2SAT 93
[2023-04-30 03:22] VITALS: BP 117/77; PULSE 86; RESP 18; TEMP 36.1; O2SAT 94
[2023-04-30 05:30] LABS: Hematocrit 27.9 % (37.0-47.0); Hemoglobin 9.2 g/dl (12.0-16.0); Mean Corpuscular Hemoglobin 27.6 pg (27.0-33.0); Mean Corpuscular Volume 83.8 fL (80.0-98.0); Mean Platelet Volume 11.3 fL (9.4-12.3); Platelet Count 153 X10*3/uL (160-400); Red Blood Count 3.33 X10*6/uL (4.20-5.50); Red Cell Distribution Width 13.4 % (11.0-16.0); White Blood Count 7.2 X10*3/uL (4.8-10.8)
[2023-04-30 05:44] LABS: Anion Gap 13 (12-20); Blood Urea Nitrogen 27 mg/dL (9-16); Calcium 8.7 mg/dL (8.4-10.2); Carbon Dioxide 25 mmol/L (22-29); Chloride 111 mmol/L (96-108); Creatinine Clr Calc Pharmacy 77.1; Estimated Glomerular Filt Rate > 60; Glucose Fasting 98 mg/dL (60-99); Potassium 3.1 mmol/L (3.3-5.1); Sodium 146 mmol/L (135-145)
[2023-04-30] MEDS: cefTRIAXone sodium 2 GM in 0.9 % Sodium Chloride 50 ML IV (06:30)
[2023-04-30 07:22] VITALS: BP 160/78; PULSE 89; RESP 18; TEMP 36.6; O2SAT 90
--- NOTE | 2023-04-30 07:52 | P.PNOP_ITS ---
Subjective Subjective Date of Service: 04/30/23 Interval history: POD 2 s/p ORIF right femur periprosthetic fx no overnight events resting in bed denies sob, cp, palpitations Physical Exam Vital Signs: Vital Signs: Last Vital Signs Temp 97.8 F 04/30/23 07:22 Pulse 89 04/30/23 07:22 Resp 18 04/30/23 07:22 BP 160/78 H 04/30/23 07:22 Pulse Ox 90 L 04/30/23 07:22 O2 Del Method Room Air 04/30/23 07:22 O2 Flow Rate 1 04/29/23 12:17 Oxygen Flow Rate 2 04/29/23 09:25 BMI result Body Mass Index 32.2 Const: General: cooperative, healthy appearing and no acute distress Resp: Effort & Inspection: normal respiratory effort and able to speak in complete sentences Cardio: Rate: regular rate Peripheral pulses: Peripheral pulses 2+ throughout GI: Palpation (GI): Soft to palpation Skin: General skin exam: no rashes or lesions noted Extrem: Other: bandage c/d/i. No erythema or effusion. Calf supple nontender. Neurovascularly intact. Procedures Date of Service Date of Service: 04/30/23 Progress Note: A&P Assessment and plan (1) Femur fracture, right: Status: Acute Assessment and Plan: * Continue pain mgmnt * lovenox for dvt ppx * PT / OT for RT ORIF femur-NWB * Dispo planning-Pending PT eval, pain mgmnt Time Spent With Patient Time: Total time managing care of this patient today ____ minutes. Quality Stroke Does the patient have a stroke diagnosis?: No VTE Prior VTE?: No VTE Risk Level:: Medical - moderate - high VTE Device Contraindication: Treatment Not Indicated VTE Drug Contraindication: Treatment Not Indicated
[2023-04-30] MEDS: Morphine Sulfate Oral Sol 10 MG/5 ML SOLUTION 5 MG PO ×2 (08:40→13:39)
[2023-04-30] MEDS: Potassium Chloride ER 20 MEQ TAB.ER.PRT 40 MEQ PO (08:43)
[2023-04-30] MEDS: Enoxaparin Sodium 40 MG/0.4 ML SYRINGE SUBCUT (08:43)
[2023-04-30] MEDS: 0.9 % Sodium Chloride Flush 3 ML SYRINGE IVFLUSH (08:44)
[2023-04-30 09:00] VITALS: O2SAT 92
--- NOTE | 2023-04-30 10:16 | P.PNIM_ITS ---
Subjective Subjective Date of Service: 04/30/23 Interval History: cough Physical Exam 2 Vital Signs: Vital Signs: Last Vital Signs Temp 97.8 F 04/30/23 07:22 Pulse 89 04/30/23 07:22 Resp 18 04/30/23 07:22 BP 160/78 H 04/30/23 07:22 Pulse Ox 92 04/30/23 09:00 O2 Del Method Room Air 04/30/23 09:00 O2 Flow Rate 1 04/29/23 12:17 Oxygen Flow Rate 2 04/29/23 09:25 BMI result Body Mass Index 32.2 Const: General: cooperative, healthy appearing and no acute distress Resp: Effort & Inspection: normal respiratory effort and able to speak in complete sentences Cardio: Rate: regular rate Peripheral pulses: Peripheral pulses 2+ throughout GI: Palpation (GI): Soft to palpation Skin: General skin exam: no rashes or lesions noted Extrem: Other: bandage c/d/i. No erythema or effusion. Calf supple nontender. Neurovascularly intact. Objective Data Active Medications Acetaminophen (Acetaminophen 325 Mg Tablet) 650 mg PO Q6H PRN PRN Reason: Pain, Mild (Pain Scale 1-3) Enoxaparin Sodium (Enoxaparin Sodium 40 Mg/0.4 Ml Syringe) 40 mg SUBCUT Q24H [facility] Last Admin: 04/30/23 08:43 Dose: 40 mg Documented By: SANTOSH Ceftriaxone Sodium 2 gm/ (Sodium Chloride) 50 mls @ 100 mls/hr IV Q24H [facility] Last Infusion: 04/30/23 07:11 Dose: Infused Documented By: SANTOSH Melatonin (Melatonin 3 Mg Tablet) 6 mg PO BEDTIME PRN PRN Reason: Insomnia Morphine Sulfate (Morphine Sulfate 4 Mg/Ml Cartridge) 4 mg IVPUSH Q4H PRN; Protocol PRN Reason: Pain, Severe (Pain Scale 7-10) Last Admin: 04/29/23 07:48 Dose: 4 mg Documented By: COTEMA Morphine Sulfate (Morphine Sulfate Oral Saira 10 Mg/5 Ml Solution) 5 mg PO Q4H PRN PRN Reason: moderate pain Last Admin: 04/29/23 21:48 Dose: 5 mg Documented By: OZORALB Ondansetron HCl (Ondansetron Hcl 4 Mg/2 Ml Vial) 4 mg IVPUSH Q8H PRN PRN Reason: Nausea and Vomiting Sodium Chloride (0.9 % Sodium Chloride Flush 3 Ml Syringe) 3 ml IVFLUSH QSHIFT [facility] Last Admin: 04/30/23 08:44 Dose: 3 ml Documented By: SANTOSH Labs 04/30/23 05:16 04/30/23 05:16 Labs: Laboratory Results - last 24 hr 04/30/23 05:16 MCV 83.8 MCH 27.6 MCHC 33.0 RDW 13.4 Plt Count 153 L D MPV 11.3 Absolute Nucleated RBC 0.000 Nucleated RBC % (auto) 0.0 Anion Gap 13 Estim Creat Clear Calc 77.1 Estimated GFR > 60 Fasting Glucose 98 Calcium 8.7 Microbiology Microbiology Results: Microbiology 04/26/23 17:25 Blood Culture - Final Blood - Venous Escherichia coli 04/26/23 16:56 Blood Culture - Final Blood - Venous Escherichia coli Assessment and Plan (1) Acute renal insufficiency: Status: Acute Plan 72F presented with mechanical fall found to have right distal periprosthetic femur fracture, uti, sepsis, anil, hypoxia, pna Sepsis and acute hypoxic respiratory failure secondary to acute UTI and pneumonia complicated by ecoli bacteremia Ceftriaxone, now on room air can be on curoxime on discharge Right distal femoral periprosthetic fracture due to mechanical fall due to above pod 2, nwb rle ANIL Resolved Acute hypokalemia Repleted Full code Reason continue hospitalization- awaiting placement Time Spent With Patient Time: Total time managing care of this patient today ____ minutes. Quality Stroke Does the patient have a stroke diagnosis?: No VTE Prior VTE?: No VTE Risk Level:: Medical - moderate - high VTE Device Contraindication: Treatment Not Indicated VTE Drug Contraindication: Treatment Not Indicated
[2023-04-30 12:00] VITALS: BP 139/73; PULSE 96; RESP 18; TEMP 36.6; O2SAT 93
--- NOTE | 2023-04-30 12:00 | P.DS_ITS ---
DS: Providers Provider Date of Service: 04/30/23 Date of admission: 04/26/23 21:01 Primary care physician: None Physician Consults: 04/26/23 20:34 Consult to Orthopedics Routine Consulting Provider: [facility] Surgeons Reason for consultation: distal femur fracture DS: Diagnosis Discharge Diagnosis (1) Acute renal insufficiency: Status: Acute DS: Summary Hospital Course Hospital Course: from initial hpi: 72-year-old female with no known pertinent past medical history and not on prescription medications presents to the emergency department after a fall. Patient states she has been feeling unwell for the last 2 days. Had an episode of vomiting 1 day prior to presentation. Has associated generalized weakness and poor appetite. Also increased urinary frequency. Patient states after a shower on the day of presentation, she felt weak and felt like her knees gave out. She fell down on the right-side and heard a crack. No fever, chills, chest discomfort, palpitations, shortness of breath, abdominal pain, changes in urinary habits. No loss of consciousness prior to the fall. In the emergency department, patient was found to be septic and urine concerning for UTI. Imaging with distal femur fracture hospital course: Patient was admitted for sepsis and acute hypoxic respiratory failure secondary to acute urinary tract infection and pneumonia/pneumonitis complicated by E coli bacteremia. She was treated with ceftriaxone will be transitioned to 5 more days of cefuroxime on discharge. She was weaned down to room air and repeat chest x-ray was normal. For right distal femoral periprosthetic fracture due to mechanical fall due to weakness from sepsis she underwent orthopedic surgery, perioperative period was unremarkable. Recommendations are for nonweightbearing to right lower extremity and PT at short-term rehab. Patient also presented with acute kidney injury which resolved. And acute hypokalemia which resolved with replacement. Time Spent with Patient Time attestation: Total time managing care of this patient today ____ minutes. Discharge coordination time: Greater than 30 minutes Quality: Safe Use of Opioids Does Pt have an Active Cancer Diagnosis on the Problem List?: No Quality: Stroke Does the patient have a stroke diagnosis?: No Physical Exam Vital Signs: Vital Signs: Last Vital Signs Temp 97.8 F 04/30/23 07:22 Pulse 89 04/30/23 07:22 Resp 18 04/30/23 07:22 BP 160/78 H 04/30/23 07:22 Pulse Ox 92 04/30/23 09:00 O2 Del Method Room Air 04/30/23 09:00 O2 Flow Rate 1 04/29/23 12:17 Oxygen Flow Rate 2 04/29/23 09:25 BMI result Body Mass Index 32.2 Const: General: cooperative, healthy appearing and no acute distress Resp: Effort & Inspection: normal respiratory effort and able to speak in complete sentences Cardio: Rate: regular rate Peripheral pulses: Peripheral pulses 2+ throughout GI: Palpation (GI): Soft to palpation Skin: General skin exam: no rashes or lesions noted Extrem: Other: bandage c/d/i. No erythema or effusion. Calf supple nontender. Neurovascularly intact. DS: Data Data Completed and Pending Labs on day of discharge: Laboratory Results - last 24 hr 04/30/23 05:16 WBC 7.2 RBC 3.33 L D Hgb 9.2 L D Hct 27.9 L D MCV 83.8 MCH 27.6 MCHC 33.0 RDW 13.4 Plt Count 153 L D MPV 11.3 Absolute Nucleated RBC 0.000 Nucleated RBC % (auto) 0.0 Sodium 146 H Potassium 3.1 L Chloride 111 H Carbon Dioxide 25 Anion Gap 13 BUN 27 H Creatinine 0.70 Estim Creat Clear Calc 77.1 Estimated GFR > 60 Fasting Glucose 98 Calcium 8.7 Discharge Plan Discharge Anticipated Discharge Date/Time: 04/30/23 11:54 Patient Disposition: er [facility] Discharge Diagnosis: robert, sepsis, uti, femur fracture Referrals: Argenis Hargrove [facility] [Outside] - 1 Week Physician,None [Primary Care Provider] - 1 Week Discharge Medications: New cefuroxime axetil 500 mg tablet 500 mg PO BID Qty: 10 0RF morphine 10 mg/5 mL Solution 5 mg PO Q4H PRN (Reason: moderate pain) 5 Days Qty: 100 0RF Rx Instructions: Partial Fill upon patient request. enoxaparin 40 mg/0.4 mL Syringe 40 mg subcut Q24H 30 Days Qty: 0 0RF Discharge Orders: Discharge Order (Routine); Ordered 04/30/23 Ordered By: Isaiah Starks Diet: Advance to usual diet Activity on Discharge: nwb rle Stand Alone Forms: Patient Portal Discharge page Care Plan Goals: recovery Health Concerns: sepsis, distal femur fracture Plan of Treatment: 5 more days ceftin, non weight bearing rle, PT, ortho follow up Assessment: see above
--- NOTE | 2023-04-30 12:00 | MHC.CM.PN ---
Pt has been medically cleared for DC, she is going to [facility] in [place] for STR via ambulance.
--- NOTE | 2023-05-09 10:32 | P.OP_ITS ---
Operative Note Operative Note Date of Service: 04/28/23 Narrative: Date of Service: 04/28/23 Pre-op diagnosis: Right periporosthetic femur fracture Post-op diagnosis: same Procedure: ORIF right periprosthetic femur fracture Implants: Styker lateral femoral locking plate Surgeon: Dank Corado MD Anesthesia: GETA and local Was an Fermentation Manager used for this Procedure?: No Estimated blood loss (mL): 250 IV fluids (mL): 1,200 Pathology: none sent Condition: stable Disposition: PACU Patient was brought to the operating room and placed supine on the Riparius traction table. She was prepped and draped in standard sterile fashion and a time out was called to identify proper site, proper procedure and IV antibiotics per weight were administered. I began by applying traction and rotation to provisionally reduce the fracture. I began by making a lateral incision distally and laterally. I used the Werewolf for hemostasis. Once through the adipose tissue the IT band was incised in line with the incision. The vastus was reflected anteriorly and the bleeders were cauterized. This was a comminuted fracture of the metadiaphysis. The bone quality was poor given the presence of a total knee replacement but there was no evidence of prosthetic loosening. A Verbrugge retractor was used to reduce the fracture. I had long locking plate was selected to span the fracture and, after confirming plate location on the lateral, the distal locking screws were placed using standard AO technique. Proximally a verbrugge was used to maintain plate position. My proximal locking screws were placed using percutaneous technique. The position of the plate and the fracture reduction were confirmed with biplanar fluoroscopy. Once satisfied with this I removed all non essential instrumentation and irrigated copiously. I performed a 3-min iodine soak and closed with absorbable sutures and skin st aples. Patient was then placed in sterile dressing and extubated. She was brought to the recovery room in stable condition. There were no known complications.
== END 2023-04-30 15:46 | disposition skilled nursing facility (03) | DRG 854 ==
LOC: HO.ED 20:54 → HO.EDOVER 21:01 → HO.S3 21:46
PROVIDERS: Orthopaedic Surgery; Admitting Provider Student in an Organized Health Care Education/Training Program; Emergency Provider Emergency Medicine; Visit Provider Internal Medicine
PROC: 0QSB04Z Reposition Right Lower Femur with Internal Fixation Device, Open Approach (ICD-10-PCS; principal; 2023-04-28 08:00)
DX: A41.9 Sepsis, unspecified organism (principal); M97.11XA Periprosthetic fracture around internal prosthetic right knee joint, initial encounter; S72.401A Unspecified fracture of lower end of right femur, initial encounter for closed fracture; N39.0 Urinary tract infection, site not specified; N17.9 Acute kidney failure, unspecified; B96.20 Unspecified Escherichia coli [E. coli] as the cause of diseases classified elsewhere; W19.XXXA Unspecified fall, initial encounter; E87.6 Hypokalemia; Z79.899 Other long term (current) drug therapy
CPT/HCPCS: 36415; 71045; 73552; 73560; 80048; 81001; 83605; 83880; 85007; 85025; 85027; 87040; 87077; 87086; 87186; 87205; 97110; 97162; 97530; 99285; C1713; C1758; J0131; J0690; J0696; J1100; J1170; J1650; J2250; J2270; J2795; J3010

== ENCOUNTER → 2023-04-26 21:01 | Outpatient (BNV) | payer MEDICARE, SELFPAY | PROVIDERS: Admitting Provider Student in an Organized Health Care Education/Training Program; Emergency Provider Emergency Medicine; Visit Provider Orthopaedic Surgery | DX: M97.11XA Periprosthetic fracture around internal prosthetic right knee joint, initial encounter (principal) | CPT/HCPCS: 27507; 99024; 99232 ==

== ENCOUNTER → 2023-04-26 21:01 | Outpatient (BNV) | payer MEDICARE, SELFPAY | PROVIDERS: Admitting Provider Student in an Organized Health Care Education/Training Program; Emergency Provider Emergency Medicine; Visit Provider Student in an Organized Health Care Education/Training Program | DX: N28.9 Disorder of kidney and ureter, unspecified (principal) | CPT/HCPCS: 99223; 99232; 99233; 99239 ==

== ENCOUNTER 2023-05-16 10:27 | Outpatient (AMB) | payer MEDICARE, SELFPAY ==
--- NOTE | 2023-05-16 11:09 | MHC.OFFVIS ---
Intake Intake Visit Reasons: PO-Rt Femur ORIF 04/28 NE - ok per Amanda Intake Note: Jody is a 73 year old female who presents today for a post op appointment s/p right femur ORIF, 04/28/23 NE. Patient reports having pain after PT. She states that she is having discomfort on her right side. Allergies sulfite Adverse Reaction (Verified 05/16/23 11:09) Rash HPI PO-Rt Femur ORIF 04/28 NE - ok per Amanda HPI Details 73-year-old female who presents in the office today 2 weeks status post right femur ORIF, which was performed on 04/28/[address] Corado. While in the office today she reports the leg is stiff. She confirms she has been working with physical therapy, but feels it is not going well. She confirms she has been non-weight bearing. She is currently at the [facility]. Her daughter states they just received a letter stating she has exceeded her abilities and they are now looking for another facility. She is currently unable to bear weight on the left side and is currently bed bound. [facility] Social History Household Members: Spouse Housing: House Do you presently have visiting nurse or other home services: No Patient Tobacco Use Status: Never used Tobacco service: No Review of Systems Const All systems reviewed & are unremarkable except as noted in HPI and below Physical Exam Const General: cooperative, healthy appearing and no acute distress Resp Effort & Inspection: normal respiratory effort and able to speak in complete sentences Cardio Rate: regular rate Peripheral pulses: Peripheral pulses 2+ throughout GI Palpation (GI): Soft to palpation Skin Lesions: no lesions Rashes: no rashes Extrem Other: Right femur: Incision site is clean, dry, and intact. Dunlap intact. No surrounding erythema or drainage. No signs of infection. Able to flex and extend at the knee as well as the hip. NVI. Assessment & Plan Assessment & Plan (1) Femur fracture, right: Code(s): S72.91XA - Unspecified fracture of right femur, initial encounter for closed fracture Qualifiers: Encounter type: initial encounter Femur location: unspecified portion of femur Fracture morphology: unspecified fracture morphology Fracture type: closed Qualified Code(s): S72.91XA - Unspecified fracture of right femur, initial encounter for closed fracture Plan Ms. Simmons is a 73-year-old female who presents in the office today 2 weeks status post right femur ORIF, which was performed on 04/28/[address] Corado. While in the office today she reports the leg is stiff. She confirms she has been working with physical therapy, but feels it is not going well. She confirms she has been non-weight bearing. She is currently at the [facility]. Her daughter states they just received a letter stating she has exceeded her abilities and they are now looking for another facility. She is currently unable to bear weight on the left side and is currently bed bound. Dunlap were removed and steri-stripes were applied. The patient will remain non-weight bearing for 3 months post operatively. Herlinda were removed and steri-stripes were applied. She will work with physical therapy on glute, quad, core strengthening and upper body strengthening exercises to assist with ambulation. No ROM restrictions of the hip or knee. Follow up will be in 4 weeks with repeat x-rays, or sooner if needed. X-rays of the right femur which were obtained while in the office today and were reviewed by me, Lyndsay Davenport PA-C, revealed orthopedic hardware intact with routine healing. Orders: Orders XR femur RT 2V Today S72.91XA - Unspecified fracture of right femur, initial encounter for closed fracture Patient Instructions: Scribed for Lyndsay Davenport PA-C by Yasmin Eid medical office manager, on 05/16/2023 at 10:31 am, EST. Coding Level of Care Code Global (22183) Diagnoses Closed fracture of right femur, unspecified fracture morphology, unspecified portion of femur, initial encounter S72.91XA Encounter type: initial encounter Femur location: unspecified portion of femur Fracture morphology: unspecified fracture morphology Fracture type: closed
== END 2023-05-16 11:30 | disposition home or self-care (01) ==
PROVIDERS: Visit Provider Physician Assistant
DX: S72.91XA Unspecified fracture of right femur, initial encounter for closed fracture (principal)
CPT/HCPCS: 99024

== ENCOUNTER 2023-05-16 10:27 | Outpatient (REF) | payer OTHER, MEDICARE, SELFPAY ==
--- NOTE | ~2023-05-16 | XR_ITS ---
EXAMINATION: XR FEMUR, RIGHT CLINICAL INFORMATION: Unspecified fracture right COMPARISON: 04/29/2023 TECHNIQUE: 6 views AP and lateral views of the right femur were obtained. FINDINGS: The bones are diffusely demineralized. Redemonstration of laterally placed plate and multiple screws transfixing previously identified comminuted periprosthetic fracture of the right distal femoral shaft. Fracture lines are still visible, although there is some evidence of interval callus deposition. Hardware appears intact. Bones are diffusely demineralized. Degenerative changes in the partially imaged lower lumbar spine and right hip. XR/XR femur RT 2V IMPRESSION: ORIF of right distal femoral shaft periprosthetic fracture.
== END 2023-05-16 10:28 | disposition home or self-care (01) ==
LOC: HO.HOSX 10:27
PROVIDERS: Visit Provider Physician Assistant
DX: S72.91XD Unspecified fracture of right femur, subsequent encounter for closed fracture with routine healing (principal); X58.XXXD Exposure to other specified factors, subsequent encounter
CPT/HCPCS: 73552; 99212

== ENCOUNTER 2023-06-13 10:09 | Outpatient (AMB) | payer MEDICARE, SELFPAY ==
--- NOTE | 2023-06-13 10:13 | A.OFFVIS_ITS ---
Intake Intake Visit Reasons: PO-Rt Femur ORIF 04/28 NE Intake Note: Jody is a 73 year old female who presents for a post op appointment for a right femur ORIF 04/28 NE. Allergies sulfite Adverse Reaction (Verified 06/13/23 10:14) Rash Medication List - Last Reconciled 06/13/23 by Amanda Barragan RN cefuroxime axetil 500 mg PO BID enoxaparin 40 mg (0.4 mL) subcut Q24H 30 days morphine 5 mg (2.5 mL) PO Q4H PRN 5 days HPI PO-Rt Femur ORIF 04/28 NE HPI Details 73-year-old female who presents in the [facility] today 6 weeks status post right femur ORIF, which was performed on 04/28/[address] Corado. She reports pain in her right hand. She states she injured her hand while trying to push herself up when transferring on a board. She is accompanied in the office today by multiple family members. [facility] Social History Household Members: Spouse Housing: House Do you presently have visiting nurse or other home services: No Patient Tobacco Use Status: Never used Tobacco service: No Review of Systems Const All systems reviewed & are unremarkable except as noted in HPI and below Physical Exam Const General: cooperative, healthy appearing and no acute distress Resp Effort & Inspection: normal respiratory effort and able to speak in complete sentences Cardio Rate: regular rate Peripheral pulses: Peripheral pulses 2+ throughout GI Palpation (GI): Soft to palpation Skin Lesions: no lesions Rashes: no rashes Extrem Other: Right femur: Incision site is clean, dry, and intact; almost completely healed. [place] intact. No surrounding erythema or drainage. No signs of infection. Able to dorsiflex and plantarflex. Sensation intact. NVI. Right hand: Normal to inspection. No ecchymosis or erythema. Edema and light tenderness to palpation over the base of the thumb and first metacarpal. Able to perform full finger flexion, extension, abduction, adduction, finger cross, okay sign, and thumbs up without deficit. Able to make a closed fist. Sensation intact. Capillary refill is brisk. Radial pulse intact. Assessment & Plan Assessment & Plan (1) Femur fracture, right: Code(s): S72.91XA - Unspecified fracture of right femur, initial encounter for closed fracture Qualifiers: Encounter type: initial encounter Femur location: unspecified portion of femur Fracture morphology: unspecified fracture morphology Fracture type: closed Qualified Code(s): S72.91XA - Unspecified fracture of right femur, initial encounter for closed fracture (2) Arthritis of right hand: Code(s): M19.041 - Primary osteoarthritis, right hand Plan Ms. Simmons is a 73-year-old female who presents in the office today 6 weeks status post right femur ORIF, which was performed on 04/28/[address] Corado. She reports pain in her right hand. She states she injured her hand while trying to push herself up when transferring on a board. She is accompanied in the office today by multiple family members. She will remain non-weight bearing. She has no restrictions with ROM. In the consult form I have asked to get her up and out of bed into the recliner 3 times a day. Follow up will be in 6 weeks with repeat x-rays, or sooner if needed. X-rays of the right femur which were obtained while in the office today and were reviewed by me, Lyndsay Davenport PA-C, revealed orthopedic hardware intact with routine healing. X-rays of the right hand which were obtained while in the office today and were reviewed by me, Lyndasy Davenport PA-C, revealed no acute fracture or dislocation. Significant arthritic changes along the distal radius and carpals as well as the base of the thumb. Orders: Orders XR femur RT 2V Today S72.91XA - Unspecified fracture of right femur, initial encounter for closed fracture XR hand RT min 3V Today M79.643 - Pain in unspecified hand Patient Instructions: Scribed for Lyndsay Davenport PA-C by Yasmin Eid ophthalmic medical technician, on 06/13/2023 at 10:26 am, EST. Coding Level of Care Code Global (59746) Diagnoses Closed fracture of right femur, unspecified fracture morphology, unspecified portion of femur, initial encounter S72.91XA Encounter type: initial encounter Femur location: unspecified portion of femur Fracture morphology: unspecified fracture morphology Fracture type: closed Arthritis of right hand M19.041
== END 2023-06-13 11:16 | disposition home or self-care (01) ==
PROVIDERS: Visit Provider Physician Assistant
DX: S72.91XA Unspecified fracture of right femur, initial encounter for closed fracture (principal); M19.041 Primary osteoarthritis, right hand
CPT/HCPCS: 99024

== ENCOUNTER 2023-06-13 10:58 | Outpatient (REF) | payer MEDICARE, SELFPAY ==
--- NOTE | ~2023-06-13 | XR_ITS ---
EXAMINATION: XR HAND, RIGHT CLINICAL INFORMATION: Pain COMPARISON: None available. TECHNIQUE: PA, lateral, and oblique views of the right hand. FINDINGS: Soft tissue swelling dorsal base of the hand. Bones are diffusely demineralized. Degenerative changes identified first carpometacarpal joint, radiocarpal and carpocarpal joints. Diffuse mild interphalangeal joint space narrowings. Small calcification identified adjacent to the distal aspect of the second middle phalanx. No fracture or dislocation. XR/XR hand RT min 3V IMPRESSION: Degenerative type changes. No acute bony pathology.
--- NOTE | ~2023-06-13 | XR_ITS ---
EXAMINATION: XR FEMUR, RIGHT CLINICAL INFORMATION: History of fracture. COMPARISON: Prior radiographs, most recently 05/17/2023. TECHNIQUE: AP and lateral views of the right femur were obtained. FINDINGS: There is bony demineralization. There is an oblique, comminuted fracture of the distal right femur. An intact orthopedic fixator plate and fixator screws are applied to the distal right femur. There is an intact right knee total arthroplasty. This shows no obvious loosening. No soft tissue gas or foreign body is seen. There are atherosclerotic calcifications. XR/XR femur RT 2V IMPRESSION: There is stable alignment of mildly distracted complex fracture fragments of the distal right femur. No hardware failure or loosening is seen. There is no significant new callus formation. There is an intact right knee total arthroplasty.
== END 2023-06-13 10:59 | disposition home or self-care (01) ==
LOC: HO.HOSX 10:58
PROVIDERS: Visit Provider Physician Assistant
DX: S72.91XD Unspecified fracture of right femur, subsequent encounter for closed fracture with routine healing (principal); M19.041 Primary osteoarthritis, right hand
CPT/HCPCS: 73130; 73552

== ENCOUNTER 2023-07-25 10:35 | Outpatient (REF) | payer MEDICARE, SELFPAY ==
--- NOTE | ~2023-07-25 | XR_ITS ---
EXAMINATION: XR FEMUR, RIGHT CLINICAL INFORMATION: Fracture right femur. COMPARISON: Right femur 06/13/2023. TECHNIQUE: AP and lateral views of the right femur were obtained. FINDINGS: There has been ORIF of the right femoral distal metaphyseal fracture with a plate and screw device placed distally. A total knee joint prosthesis is partially visualized. Hardware appears intact. No new fractures are seen. Bony fusion has not occurred. XR/XR femur RT 2V IMPRESSION: Status post ORIF right femoral fracture.
== END 2023-07-25 10:36 | disposition home or self-care (01) ==
LOC: HO.HOSX 10:35
PROVIDERS: Visit Provider Physician Assistant
DX: S72.91XA Unspecified fracture of right femur, initial encounter for closed fracture (principal); X58.XXXA Exposure to other specified factors, initial encounter; Y93.9 Activity, unspecified; Y92.9 Unspecified place or not applicable; Y99.9 Unspecified external cause status; Z47.1 Aftercare following joint replacement surgery; Z96.651 Presence of right artificial knee joint
CPT/HCPCS: 73552; 99212

== ENCOUNTER 2023-07-25 12:41 | Outpatient (AMB) | payer MEDICARE, SELFPAY ==
--- NOTE | 2023-07-25 12:51 | A.OFFVIS_ITS ---
Intake Intake Visit Reasons: PO-Rt Femur ORIF 04/28/23 NE Intake Note: Jody is a 73 year old female who presents for a post op appointment for a right femur ORIF 04/28/23 NE. Patient reports she is doing well. She would like to know how everything is healing up. Allergies sulfite Adverse Reaction (Verified 07/25/23 12:51) Rash HPI PO-Rt Femur ORIF 04/28/23 NE HPI Details 73-year-old female who presents in the [facility] today 3 months status post right femur ORIF, which was performed on 04/28/[address] Corado. I last saw the patient in the office on 06/13/2023 where she was instructed to remain non-weight bearing with no ROM restrictions. In the consult form I have asked to get her up and out of bed into the recliner 3 times a day. The patient reports she is doing well and she feels great. Patient is accompanied in the office today by her and daughter. [facility] Social History Household Members: Spouse Housing: House Do you presently have visiting nurse or other home services: No Patient Tobacco Use Status: Never used Tobacco service: No Review of Systems Const All systems reviewed & are unremarkable except as noted in HPI and below Physical Exam Const General: cooperative, healthy appearing and no acute distress Resp Effort & Inspection: normal respiratory effort and able to speak in complete sentences Cardio Rate: regular rate Peripheral pulses: Peripheral pulses 2+ throughout GI Palpation (GI): Soft to palpation Skin Lesions: no lesions Rashes: no rashes Extrem Other: Right femur: Incision site is clean, dry, and intact; healed. No surrounding erythema or drainage. No signs of infection. Able to dorsiflex and plantarflex. Flex and extend at the knee to 80 degrees on the stretcher actively. Sensation intact. NVI. Assessment & Plan Assessment & Plan (1) Femur fracture, right: Code(s): S72.91XA - Unspecified fracture of right femur, initial encounter for closed fracture Qualifiers: Encounter type: initial encounter Femur location: unspecified portion of femur Fracture morphology: unspecified fracture morphology Fracture type: closed Qualified Code(s): S72.91XA - Unspecified fracture of right femur, initial encounter for closed fracture (2) History of total right knee replacement: Code(s): Z96.651 - Presence of right artificial knee joint Plan Ms. Simmons is a 73-year-old female who presents in the office today 3 months status post right femur ORIF, which was performed on 04/28/[address] Corado. I last saw the patient in the office on 06/13/2023 where she was instructed to remain non-weight bearing with no ROM restrictions. In the consult form I have asked to get her up and out of bed into the recliner 3 times a day. The patient reports she is doing well and she feels great. Patient is accompanied in the office today by her and daughter. Dr. Corado was available see the patient with me while in the office today and a collaborative treatment plan was made. She is able to begin to bear weight at 50% with the use of a walker. She was educated she can start with her toes and then as she feels safe and with out pain she may gradually apply more weight to the right lower extremity. We would like for her to gradually transition to more weight over time with the help of physical therapy. She was educated she will be using the walker for about 9 months. We discussed the facility is who will decide when she is safely able to go home. Follow up will be in 6 weeks with repeat x-rays and to follow up on how she is ambulating, or sooner if needed. X-rays of the right femur which were obtained while in the office today and were reviewed by me, Lyndsay Davenport PA-C, revealed orthopedic hardware intact with routine healing. Orders: Orders XR femur RT 2V Today S72.91XA - Unspecified fracture of right femur, initial encounter for closed fracture Patient Instructions: Scribed for Lyndsay Davenport PA-C by Yasmin Eid medical radiation tech, on 07/25/2023 at 12:44 pm, EST. Coding Level of Care Code Global (75194) Diagnoses Closed fracture of right femur, unspecified fracture morphology, unspecified portion of femur, initial encounter S72.91XA Encounter type: initial encounter Femur location: unspecified portion of femur Fracture morphology: unspecified fracture morphology Fracture type: closed History of total right knee replacement Z96.651
== END 2023-07-25 13:18 | disposition home or self-care (01) ==
PROVIDERS: Visit Provider Physician Assistant
DX: S72.91XA Unspecified fracture of right femur, initial encounter for closed fracture (principal); Z96.651 Presence of right artificial knee joint
CPT/HCPCS: 99024

== ENCOUNTER 2023-09-10 12:33 | Outpatient (AMB) | payer MEDICARE, SELFPAY ==
--- NOTE | 2023-09-10 12:38 | A.OFFVIS_ITS ---
Intake Intake Visit Reasons: ov- Rt Femur ORIF 04/28/23 NE Intake Note: Jody is a 73 year old female who presents for a follow up appointment s/p right femur ORIF 04/28/23 NE. Patient reports she has been getting a lot of pain behind her knee which causes her left hip to hurt as well. She states she is doing well with PT. Allergies sulfite Adverse Reaction (Verified 09/10/23 12:38) Rash HPI ov- Rt Femur ORIF 04/28/23 NE HPI Details 73-year-old female who presents in the [facility] today 4 months status post right femur ORIF, which was performed on 04/28/[address] Corado. I last saw the patient in the office on 07/25/2023 when she instructed she may weight bear at 50% with the use of a walker. We would like for her to gradually transition to more weight over time with the help of physical therapy. While in the office the patient reports she has been getting a lot of pain behind her knee. She confirms she has been participating in physical therapy. Patient reports pain in the left hip which she contributes to the pain in her right knee. [facility] Social History Household Members: Spouse Housing: House Do you presently have visiting nurse or other home services: No Patient Tobacco Use Status: Never used Tobacco service: No Review of Systems Const All systems reviewed & are unremarkable except as noted in HPI and below Physical Exam Const General: cooperative, healthy appearing and no acute distress Resp Effort & Inspection: normal respiratory effort and able to speak in complete sentences Cardio Rate: regular rate Peripheral pulses: Peripheral pulses 2+ throughout GI Palpation (GI): Soft to palpation Skin Lesions: no lesions Rashes: no rashes Extrem Other: Right femur: Incision site is clean, dry, and intact; healed. No surrounding erythema or drainage. No signs of infection. Able to dorsiflex and plantarflex. ROM 0-90 degrees. Sensation intact. NVI. Assessment & Plan Assessment & Plan (1) Femur fracture, right: Code(s): S72.91XA - Unspecified fracture of right femur, initial encounter for closed fracture Qualifiers: Encounter type: initial encounter Femur location: unspecified portion of femur Fracture morphology: unspecified fracture morphology Fracture type: closed Qualified Code(s): S72.91XA - Unspecified fracture of right femur, initial encounter for closed fracture (2) History of total right knee replacement: Code(s): Z96.651 - Presence of right artificial knee joint Plan Ms. Simmons is a 73-year-old female who presents in the office today 4 months status post right femur ORIF, which was performed on 04/28/[address] Corado. I last saw the patient in the office on 07/25/2023 when she instructed she may weight bear at 50% with the use of a walker. We would like for her to gradually transition to more weight over time with the help of physical therapy. While in the office the patient reports she has been getting a lot of pain behind her knee. She confirms she has been participating in physical therapy. Patient reports pain in the left hip which she contributes to the pain in her right knee. The patient may progress to weight bearing as tolerated with a walker. She has no ROM restrictions. Follow up will be in 6 weeks with x-rays, or sooner if needed. X-rays of the right femur which were obtained while in the office today and were reviewed by me, Lyndsay Davenport PA-C, revealed intact orthopedic hardware with routine healing. Orders: Orders XR femur RT 2V Today Patient Instructions: Scribed by Yasmin Eid certified medical assistant, for Lyndsay Davenport PA-C on 09/10/2023 at 12:34 pm, EST. Coding Level of Care Code Est Pt Level 3 (49324) Diagnoses Closed fracture of right femur, unspecified fracture morphology, unspecified portion of femur, initial encounter S72.91XA Encounter type: initial encounter Femur location: unspecified portion of femur Fracture morphology: unspecified fracture morphology Fracture type: closed History of total right knee replacement Z96.651
== END 2023-09-10 13:30 | disposition home or self-care (01) ==
PROVIDERS: Visit Provider Physician Assistant
DX: S72.91XD Unspecified fracture of right femur, subsequent encounter for closed fracture with routine healing (principal); Z96.651 Presence of right artificial knee joint
CPT/HCPCS: 99213

== ENCOUNTER 2023-09-10 15:40 | Outpatient (REF) | payer MEDICARE, SELFPAY ==
--- NOTE | ~2023-09-10 | XR_ITS ---
EXAMINATION: XR FEMUR, RIGHT CLINICAL INFORMATION: Pain. COMPARISON: Right femur 07/25/2023. TECHNIQUE: 5 views of the right femur. FINDINGS: The bones are diffusely demineralized. Redemonstration of ORIF of right femoral distal metaphyseal fracture with plate and screw device placed distally. Hardware appears intact. There is evidence of some interval bony bridging, although fracture line is still visible. Redemonstration of total knee prosthesis, incompletely visualized. XR/XR femur RT 2V IMPRESSION: Redemonstration of ORIF of right femoral distal metaphyseal fracture with plate and screw device placed distally. Hardware appears intact.
== END 2023-09-10 15:41 | disposition home or self-care (01) ==
LOC: HO.HOSX 15:40
PROVIDERS: Visit Provider Physician Assistant
DX: S72.91XA Unspecified fracture of right femur, initial encounter for closed fracture (principal)
CPT/HCPCS: 73552; 99212

== ENCOUNTER 2023-10-15 11:15 | Outpatient (REF) | payer MEDICARE, SELFPAY ==
--- NOTE | ~2023-10-15 | XR_ITS ---
EXAMINATION: XR FEMUR, RIGHT CLINICAL INFORMATION: Follow-up fracture. COMPARISON: Prior radiographs, most recently 09/10/2023. TECHNIQUE: AP and lateral views of the right femur were obtained. FINDINGS: Bony alignment and mineralization are normal. An orthopedic fixator plate is applied to the distal right femur, transfixing a comminuted fracture of the distal shaft and metaphysis. There is again mild distraction of fracture fragments. There is mild periosteal callus formation. There is an intact right knee total arthroplasty. There are femoral atherosclerotic calcifications. XR/XR femur RT 2V IMPRESSION: There is stable alignment status-post ORIF of a comminuted distal right femoral shaft and metaphyseal fracture. No hardware failure or loosening is seen. There is an intact right knee total arthroplasty.
== END 2023-10-15 11:16 | disposition home or self-care (01) ==
LOC: HO.HOSX 11:15
PROVIDERS: Visit Provider Physician Assistant
DX: S72.91XD Unspecified fracture of right femur, subsequent encounter for closed fracture with routine healing (principal); X58.XXXD Exposure to other specified factors, subsequent encounter; Z47.89 Encounter for other orthopedic aftercare; Z98.890 Other specified postprocedural states; Z96.651 Presence of right artificial knee joint
CPT/HCPCS: 73552; 99212

== ENCOUNTER 2023-10-15 13:35 | Outpatient (AMB) | payer MEDICARE, SELFPAY ==
--- NOTE | 2023-10-15 13:39 | MHC.OFFVIS ---
Intake Intake Visit Reasons: ov- Rt Femur ORIF 04/28/23 NE Intake Note: Jody is a 73 year old female who presents for a follow up appointment s/p right femur ORIF 04/28/23 NE. Patient reports she is having a lot of pain behind her knee and thigh. She states having a tightening sensation behind her thigh since surgery. Patient has been working with PT which she finds a bit of relief, however that tightening make her pain worse. Allergies sulfite Adverse Reaction (Verified 10/15/23 13:59) Rash HPI ov- Rt Femur ORIF 04/28/23 NE HPI Details 73-year-old female who presents in the office today 4 months status post right femur ORIF, which was performed on 04/28/[address] Corado. I last saw the patient in the office on 09/10/2023. At this time she was given instructed to progress to weight bearing at tolerated with a walker. While in the office today the patient reports having a lot of pain behind her knee and thigh. She reports having a tightening sensation behind the thigh since surgery that causes her an increased amount of pain. Patient confirms participating in physical therapy and states she has found a bit of relief. [facility] Social History Household Members: Spouse Housing: House Do you presently have visiting nurse or other home services: No Patient Tobacco Use Status: Never used Tobacco service: No Review of Systems Const All systems reviewed & are unremarkable except as noted in HPI and below Physical Exam Const General: cooperative, healthy appearing and no acute distress Resp Effort & Inspection: normal respiratory effort and able to speak in complete sentences Cardio Rate: regular rate Peripheral pulses: Peripheral pulses 2+ throughout GI Palpation (GI): Soft to palpation Skin Lesions: no lesions Rashes: no rashes Extrem Other: Right femur: Incision site is healed. No surrounding erythema or drainage. No signs of infection. Able to dorsiflex and plantarflex. knee ROM 0-90 degrees. Sensation intact. NVI. Assessment & Plan Assessment & Plan (1) Femur fracture, right: Code(s): S72.91XA - Unspecified fracture of right femur, initial encounter for closed fracture Qualifiers: Encounter type: initial encounter Femur location: unspecified portion of femur Fracture morphology: unspecified fracture morphology Fracture type: closed Qualified Code(s): S72.91XA - Unspecified fracture of right femur, initial encounter for closed fracture (2) History of total right knee replacement: Code(s): Z96.651 - Presence of right artificial knee joint Plan Ms. Simmons is a 73-year-old female who presents in the office today 4 months status post right femur ORIF, which was performed on 04/28/[address] Corado. I last saw the patient in the office on 09/10/2023. At this time she was given instructed to progress to weight bearing at tolerated with a walker. While in the office today the patient reports having a lot of pain behind her knee and thigh. She reports having a tightening sensation behind the thigh since surgery that causes her an increased amount of pain. Patient confirms participating in physical therapy and states she has found a bit of relief. Patient has a few more sessions of home physical therapy left. After that she will transition for out patient PT, which an order was given today and instructions to reach out to them for an appointment. She was given a paper copy due to her wishing to attend [facility] in [place]. Follow up will be in 6 weeks, or sooner if needed. X-rays of the right lower extremity which were obtained while in the office today and were reviewed by me, Lyndsay Davenport PA-C, revealed orthopedic hardware intact with routine healing. Orders: Orders XR femur RT 2V 10/15/23 S72.91XA - Unspecified fracture of right femur, initial encounter for closed fracture PT Evaluation and Treatment 10/15/23 S72.91XA - Unspecified fracture of right femur, initial encounter for closed fracture, Z96.651 - Presence of right artificial knee joint Coding Level of Care Code Global (45316) Diagnoses Closed fracture of right femur, unspecified fracture morphology, unspecified portion of femur, initial encounter S72.91XA Encounter type: initial encounter Femur location: unspecified portion of femur Fracture morphology: unspecified fracture morphology Fracture type: closed History of total right knee replacement Z96.651
== END 2023-10-15 14:37 | disposition home or self-care (01) ==
PROVIDERS: Visit Provider Physician Assistant
DX: S72.91XA Unspecified fracture of right femur, initial encounter for closed fracture (principal); Z96.651 Presence of right artificial knee joint
CPT/HCPCS: 99213

== ENCOUNTER 2023-11-26 10:20 | Outpatient (REF) | payer MEDICARE, SELFPAY ==
--- NOTE | ~2023-11-26 | XR_ITS ---
EXAMINATION: XR FEMUR, RIGHT CLINICAL INFORMATION: Presence of artificial knee joint. COMPARISON: Prior x-ray 10/15/2023 TECHNIQUE: AP and lateral views of the right femur were obtained. FINDINGS: Plate and screw fixation redemonstrated crossing the previously noted distal femur fracture. The appearance of the fracture alignment is unchanged. Hardware remains intact. There is some callus formation and/or periosteal reaction unchanged Incidental note of the partially visualized right total knee replacement Arterial calcification noted. XR/XR femur RT 2V IMPRESSION: Stable appearance of the right femur status post ORIF.
== END 2023-11-26 10:21 | disposition home or self-care (01) ==
LOC: HO.HOSX 10:20
PROVIDERS: Visit Provider Physician Assistant
DX: S72.91XA Unspecified fracture of right femur, initial encounter for closed fracture (principal); Z96.651 Presence of right artificial knee joint; Y93.9 Activity, unspecified; Y92.9 Unspecified place or not applicable
CPT/HCPCS: 73552; 99212

== ENCOUNTER 2023-11-26 12:46 | Outpatient (AMB) | payer MEDICARE, SELFPAY ==
--- NOTE | 2023-11-26 12:56 | A.OFFVIS_ITS ---
Intake Visit Reasons: ov- Rt Femur ORIF 04/28/23 NE Intake Note: Jody is a 73 year old female who presents for a follow up appointment s/p right femur ORIF 04/28/23 NE. Patient reports she is doing great. She expresses that she didn't go to PT due to her pain being gone when she had her feet are elevated. Allergies sulfite Adverse Reaction (Verified 11/26/23 13:04) Rash HPI HPI ov- Rt Femur ORIF 04/28/23 NE: Details: 73-year-old female who presents in the office today 7 months status post right femur ORIF, which was performed on 04/28/[address] Corado. I last saw the pa mason in the office on 10/15/2023 when she was encouraged to complete all of her home PT sessions and then she was to transition to outpatient PT. She wished to attend [facility] in [place]. While in the office today the patient reports she is doing great. She states she did not attend PT due to not having pain PFSH Social History Household Members: Spouse Housing: House Do you presently have visiting nurse or other home services: No Patient Tobacco Use Status: Never used Tobacco service: No Review of Systems Const All systems reviewed & are unremarkable except as noted in HPI and below Physical Exam Const General: cooperative, healthy appearing and no acute distress Resp Effort & Inspection: normal respiratory effort and able to speak in complete sentences Cardio Rate: regular rate Peripheral pulses: Peripheral pulses 2+ throughout GI Palpation (GI): Soft to palpation Skin Lesions: no lesions Rashes: no rashes Extrem Other: Right femur: Incision site is healed. No surrounding erythema or drainage. No signs of infection. Able to dorsiflex and plantarflex. knee ROM 0-100 degrees. Sensation intact. NVI. Assessment & Plan Assessment & Plan (1) Femur fracture, right: Code(s): S72.91XA - Unspecified fracture of right femur, initial encounter for closed fracture Category: Medical Qualifiers: Encounter type: initial encounter Femur location: unspecified portion of femur Fracture morphology: unspecified fracture morphology Fracture type: closed Qualified Code(s): S72.91XA - Unspecified fracture of right femur, initial encounter for closed fracture (2) History of total right knee replacement: Code(s): Z96.651 - Presence of right artificial knee joint Category: Surgical Plan Ms. Simmons is a 73-year-old female who presents in the office today 7 months status post right femur ORIF, which was performed on 04/28/[address] Corado. I last saw the patient in the office on 10/15/2023 when she was encouraged to complete all of her home PT sessions and then she was to transition to outpatient PT. She wished to attend [facility] in [place]. While in the office today the patient reports she is doing great. She states she did not attend PT due to not having pain. Patient will return to normal activities as tolerated. Follow up will be PRN, or sooner if needed. X-rays of the right femur which were obtained while in the office today and were reviewed by me, Lyndsay Davenport PA-C, revealed intact orthopedic hardware with routine healing. Orders: Orders XR femur RT 2V Today Z96.651 - Presence of right artificial knee joint Patient Instructions: Scribed by Yasmin Eid certified medical assistant, for Lyndsay Davenport PA-C on 11/26/2023 at 12:59 pm, EST. Coding Level of Care Code Global (48571) Diagnoses Closed fracture of right femur, unspecified fracture morphology, unspecified portion of femur, initial encounter S72.91XA Encounter type: initial encounter Femur location: unspecified portion of femur Fracture morphology: unspecified fracture morphology Fracture type: closed History of total right knee replacement Z96.651
== END 2023-11-26 13:15 | disposition home or self-care (01) ==
PROVIDERS: Visit Provider Physician Assistant
DX: S72.91XD Unspecified fracture of right femur, subsequent encounter for closed fracture with routine healing (principal); Z96.651 Presence of right artificial knee joint
CPT/HCPCS: 99213